=== PATIENT | female | born 1980 | race Caucasian/White ===

== ENCOUNTER → 2020-10-25 11:05 | Outpatient (BNVA) | payer OTHER, SELFPAY | PROVIDERS: Visit Provider Obstetrics & Gynecology ==

== ENCOUNTER 2020-11-06 08:57 | Outpatient (REF) | payer OTHER, SELFPAY ==
[2020-11-09 01:27] LABS: HPV mRNA E6/E7 rflx Not Detected (Not Detected)
== END 2020-11-06 08:58 | disposition home or self-care (01) ==
LOC: HO.LAB 08:57
PROVIDERS: Visit Provider Obstetrics & Gynecology
DX: Z01.419 Encounter for gynecological examination (general) (routine) without abnormal findings (principal); Z11.51 Encounter for screening for human papillomavirus (HPV)
CPT/HCPCS: 87624; 88142

== ENCOUNTER 2020-12-25 12:33 | Outpatient (REF) | payer OTHER, SELFPAY ==
--- NOTE | ~2020-12-25 | MM_ITS ---
EXAMINATION: MM SCREENING DIGITAL BREAST TOMOSYNTHESIS, BILATERAL CLINICAL INFORMATION: Screening. Asymptomatic. Benign excisional biopsy left breast 2000 by patient history. Age 40. No known family history breast cancer. The lifetime risk of breast cancer based on the Tyrer-Cuzick Model is 10%. COMPARISON: None (current study represents initial baseline exam). TECHNIQUE: Digital breast tomosynthesis is performed in both the craniocaudal and mediolateral oblique views along with computer-aided detection (CAD). Synthesized 2D images are generated from the tomosynthesis. FINDINGS: There are scattered areas of fibroglandular density (ACR BI-RADS breast composition Category b). There is benign-appearing oval circumscribed nodule mid central 6:00 right breast measuring approximately 7 x 4 mm, possibly a cyst. As this represents initial baseline exam, patient will be recalled for additional characterization with ultrasound. The remainder of the breasts are unremarkable. There is no significant mass or architectural abnormality or abnormal calcifications. The axilla and skin contours are unremarkable. MM/MM tomosynthesis screening BI IMPRESSION: 1. Right: Circumscribed oval nodule under 1 cm mid central 6:00, possibly a cyst. 2. Left: No mammographic evidence of malignancy. ASSESSMENT: BI-RADS 0: Incomplete - Need Additional Imaging Evaluation RECOMMENDATION: 1. Targeted ultrasound right breast. 2. Radiology department staff will contact the patient for additional imaging. This patient's information was entered into a reminder system with a target due date for their next mammogram.
== END 2020-12-25 12:34 | disposition home or self-care (01) ==
LOC: HO.MAMMO 12:33
PROVIDERS: Visit Provider Obstetrics & Gynecology
DX: Z12.31 Encounter for screening mammogram for malignant neoplasm of breast (principal)
CPT/HCPCS: 77063; 77067

== ENCOUNTER 2021-01-17 12:44 | Outpatient (REF) | payer OTHER, SELFPAY ==
--- NOTE | ~2021-01-17 | US_ITS ---
EXAMINATION: US DIAGNOSTIC ULTRASOUND BREAST, RIGHT CLINICAL INFORMATION: Recall from baseline screening mammography for benign-appearing oval circumscribed nodule mid central 6:00 right breast under 1 cm. No known family history breast cancer. TC score 10%. COMPARISON: Mammography 12/25/2020. TECHNIQUE: Ultrasound right breast is targeted to the lower breast 4:00 through 8:00 position. Grayscale imaging and color Doppler are performed without and with harmonics. FINDINGS: There are 3 small cysts in the mid lower right breast, the oval unilocular simple cyst 6:00 position measuring 5 x 3 mm corresponds to the finding on baseline mammography. The other 2 cysts are also benign, an 8 x 4 mm cyst with fine avascular internal septation and a 6 x 4 mm cyst with fine incomplete avascular internal septation. There is no solid mass or architectural abnormality. No duct ectasia or edema tracking in soft tissue planes. Results are discussed with the patient at time of visit. US/US breast RT limited IMPRESSION: There are several small cysts in the lower right breast, one corresponding to the finding on baseline mammography. No solid mass or architectural abnormality. ASSESSMENT: BI-RADS 2: Benign RECOMMENDATION: Routine annual mammography screening. This patient's information was entered into a reminder system with a target due date for their next mammogram.
== END 2021-01-17 12:45 | disposition home or self-care (01) ==
LOC: HO.MAMMO 12:44
PROVIDERS: Visit Provider Obstetrics & Gynecology
DX: N63.15 Unspecified lump in the right breast, overlapping quadrants (principal)
CPT/HCPCS: 76642

== ENCOUNTER 2021-11-08 06:15 | Inpatient (IN) | payer OTHER, SELFPAY ==
--- NOTE | ~2021-11-08 | XR_ITS ---
EXAMINATION: XR CHEST CLINICAL INFORMATION: Status post chest tube clamping. COMPARISON: 11/12/2021 chest radiograph. TECHNIQUE: Frontal view of the chest was obtained. FINDINGS: Support devices: Right pigtail chest tube without interval change. The lungs are clear. No pneumothorax. The heart and mediastinal structures are unremarkable. XR/XR chest 1V IMPRESSION: No acute cardiopulmonary process. No pneumothorax with right chest tube clamped.
--- NOTE | ~2021-11-08 | XR_ITS ---
EXAMINATION: XR CHEST CLINICAL INFORMATION: Chest tube placement for right-sided pneumothorax. Delayed image COMPARISON: Earlier on same day TECHNIQUE: AP portable view of the chest was obtained. FINDINGS: Since previous study a right-sided chest tube has been placed. There has been reexpansion of the right lung with no persistent pneumothorax identified. There is right base parenchymal disease present likely related to atelectasis. No mediastinal shift is appreciated as had been seen earlier. The left hemithorax appears unremarkable. Heart normal size. XR/XR chest 1V IMPRESSION: Right chest tube in place with reexpansion of the right lung with no residual pneumothorax appreciated.
--- NOTE | ~2021-11-08 | CT_ITS ---
EXAMINATION: CT CHEST WITHOUT CONTRAST CLINICAL INFORMATION: Right-sided pneumothorax COMPARISON: Chest radiograph 11/08/2021 6:31 AM TECHNIQUE: Multidetector volumetric CT imaging of the chest was done. Axial MIP volume rendering provided. Sagittal and coronal reformatted images were obtained. This CT examination was performed using dose optimization techniques as appropriate, variously including the following: *Automated exposure control *Adjustment of mA and/or kV according to patient size (this includes techniques or standardized protocols for targeted exams where dose is matched to indication/reason for exam; i.e. extremities or head) *Use of iterative reconstruction technique DLP: 191 mGy-cm FINDINGS: VALUE STREAM COACH: Moderate size right pneumothorax which appears increased when compared to the chest radiograph from 6:31 AM this morning LUNGS: Moderate sized right pneumothorax is present with partial collapse of the right middle lobe and atelectatic changes in the right lower lobe. This appears increased in size when compared to the prior chest radiograph. Incidentally noted is a 2 mm nodule right upper lobe (6:186). MEDIASTINUM: The mediastinum is normal. PLEURA: There is no pleural effusion. No pleural mass or thickening. AXILLA: No lymphadenopathy. UPPER ABDOMEN: 2 nonobstructing calculi are seen in the partially visualized left kidney. OSSEOUS STRUCTURES: Unremarkable. CT/CT chest wo con IMPRESSION: 1. Increasing size of right pneumothorax with partial collapse right middle lobe and right lower lobe atelectasis. 2. Incidental note nonobstructing left renal calculi and tiny 2 mm right upper lobe nodule which should need no further follow-up. 2017 Fleischner Society Recommendations for Lung Nodule(s): Follow-Up based on size (average of long- and short-axis diameters). Use most suspicious nodule for followup. Single Solid low risk nodule < 6 mm: No routine follow-up imaging is recommended in low risk and high risk patients. These guidelines do not apply to patients younger than 35 years, immunocompromised patients, and patients with cancer. F/u in patients with significant comorbidities as clinically warranted. For lung cancer screening, adhere to Lung-RADS guidelines. Reference: Radiology. 2017 Nov; 284(1):228-243 Fleischner guidelines were followed.
--- NOTE | ~2021-11-08 | XR_ITS ---
EXAMINATION: XR CHEST CLINICAL INFORMATION: Right-sided chest tube. Rule out pneumothorax. COMPARISON: November 11, 2021. TECHNIQUE: AP portable view of the chest was obtained. FINDINGS: Right-sided chest tube is again seen in position with no pneumothorax identified. No mediastinal shift. There is minor atelectasis seen at the right base. Heart normal size. No evidence of pulmonary edema. XR/XR chest 1V IMPRESSION: Right chest tube in place without pneumothorax. Minimal right base disease.
--- NOTE | ~2021-11-08 | CT_ITS ---
PROCEDURE: CT GUIDED INSERTION, PLEURAL CATHETER CLINICAL INFORMATION: Right pneumothorax. COMPARISON: CT of same day and 02/05/2019. TECHNIQUE: CT fluoroscopic-guided right chest tube placement. This CT examination was performed using dose optimization techniques as appropriate, variously including the following: *Automated exposure control *Adjustment of mA and/or kV according to patient size (this includes techniques or standardized protocols for targeted exams where dose is matched to indication/reason for exam; i.e. extremities or head) *Use of iterative reconstruction technique DLP: 141 mGy-cm. FINDINGS: Informed consent was obtained from the patient prior to the procedure. During this process, the procedure and potential alternatives were explained, along with the intended outcome and benefits. The risks of the procedure, as well as the risk of not doing the procedure, were discussed. The patient was given the opportunity to ask questions regarding the procedure and appeared competent to make medical decisions. A signed consent form which documents this discussion was placed in the medical record. Preliminary CT scanning demonstrates a large right pneumothorax with basilar atelectasis. There is some mild mediastinal shift to the left. There are bilateral apical blebs present as well as small lung cysts right greater than left. Bilateral nephrolithiasis is present. Using sterile technique and CT fluoroscopic guidance, a 4 [place] Yueh needle was placed into the pleural space from an anterior approach. The guidewire was coiled within the pleural space and following fascial dilatation, a 10.2 [place]an chest tube was placed. The lung was partially reexpanded with a small residual pneumothorax present. There remains some right lower lobe atelectasis. Catheter will be placed to low wall suction other than for ambulation. CT/CT chest tube placement IMPRESSION: Placement of 10.2 cm right chest tube as described.
--- NOTE | ~2021-11-08 | XR_ITS ---
EXAMINATION: PORTABLE CHEST 1 VIEW CLINICAL INFORMATION: Pneumothorax: pigtail clamped x 2 hrs . COMPARISON: Study earlier today. TECHNIQUE: Portable frontal view of the chest was obtained. FINDINGS: Previous noted chest tube is no longer seen. I do not appreciate any significant pneumothorax. Mild tubular markings seen at the lung bases possibly due to atelectasis. No significant effusion or edema. Cardiac and mediastinal silhouettes within normal limits for size. No acute bony abnormality. XR/XR chest 1V IMPRESSION: No significant pneumothorax seen. Right chest tube is no longer visualized.
--- NOTE | ~2021-11-08 | XR_ITS ---
EXAMINATION: XR CHEST CLINICAL INFORMATION: Reassess pneumothorax. COMPARISON: Chest radiographs dated 11/09/2021 and 11/10/2021. TECHNIQUE: Frontal view of the chest was obtained. FINDINGS: Support devices: Right-sided pigtail catheter without interval change. Coiled wires overlie the medial right lung base without interval change. No significant abnormality is noted involving the heart, lungs, mediastinum, bony thorax or soft tissues. XR/XR chest 1V IMPRESSION: No acute cardiopulmonary process. No right pneumothorax with chest tube in place.
--- NOTE | ~2021-11-08 | XR_ITS ---
EXAMINATION: XR CHEST CLINICAL INFORMATION: Chest pain COMPARISON: 02/09/2019 TECHNIQUE: Frontal view of the chest was obtained. FINDINGS: Cardiac leads overlie the chest. The lungs are well expanded. There is no focal consolidation, edema, or effusion. There is a small right-sided pneumothorax. The cardiomediastinal silhouette is within normal limits. No acute osseous abnormality. XR/XR chest 1V IMPRESSION: Small right pneumothorax. This critical result was discussed with Linda Cotto MD by telephone at 11/08/2021 6:49 AM and it was ascertained that the content and urgency of the report was understood at the time of direct communication.
--- NOTE | ~2021-11-08 | XR_ITS ---
EXAMINATION: XR CHEST CLINICAL INFORMATION: Pneumothorax evaluation COMPARISON: 11/08/2021. TECHNIQUE: Frontal view of the chest was obtained. FINDINGS: There is been reexpansion of the right lung. The right-sided chest tube is in stable position. Lungs are clear. Heart and pulmonary vessels are normal. XR/XR chest 1V IMPRESSION: Stable findings. No pneumothorax at this time.
--- NOTE | ~2021-11-08 | XR_ITS ---
EXAMINATION: XR CHEST CLINICAL INFORMATION: Follow-up chest x-ray, assessing for pneumothorax. COMPARISON: 11/09/2021 and 11/08/2021 chest radiographs, chest CT dated 11/08/2021. TECHNIQUE: Frontal view of the chest was obtained. FINDINGS: Support devices: Right-sided pigtail chest tube overlying of the midlung medially. Correlate wires overlie the right lung base. The lungs are clear. No pneumothorax. The heart and mediastinal structures are unremarkable. XR/XR chest 1V IMPRESSION: No acute cardiopulmonary process. No overt pneumothorax with chest tube in place.
[2021-11-08 06:17] VITALS: BP 142/90; PULSE 82; RESP 16; O2SAT 98
--- NOTE | 2021-11-08 06:17 | ECG_ITS ---
Test Reason : CHEST PAIN Blood Pressure : / mmHG Vent. Rate : 075 BPM Atrial Rate : 075 BPM P-R Int : 122 ms QRS Dur : 082 ms QT Int : 384 ms P-R-T Axes : 082 082 067 degrees QTc Int : 428 ms Normal sinus rhythm Cannot rule out Anterior infarct , age undetermined Abnormal ECG When compared with ECG of 05-FEB-2019 12:47, changes noted Referred By: Generic ED Physician Electronically Signed By:GIO NOLAN
[2021-11-08 06:26] LABS: MANUAL DIFF FLAG NO
[2021-11-08 06:30] LABS: Basophils Percent Auto 0.4 % (0-2); Eosinophils Absolute Auto 0.3 X10*3/uL (0.0-0.4); Eosinophils Percent Auto 4.3 % (0-4); Hematocrit 42.3 % (37.0-47.0); Hemoglobin 14.3 g/dl (12.0-16.0); Imm Gran Abs Auto 0.01 X10*3/uL (0.00-0.03); Imm Gran Pct Auto 0.1 % (0.0-0.4); Lymphocytes Absolute Auto 2.7 X10*3/uL (1.2-4.9); Lymphocytes Percent Auto 36.6 % (20-40); Mean Corpuscular HGB Conc 33.8 g/dl (31.0-35.0); Mean Corpuscular Hemoglobin 33.1 pg (27.0-33.0); Mean Corpuscular Volume 97.9 fL (80.0-98.0); Mean Platelet Volume 10.7 fL (9.4-12.3); Monocytes Absolute Auto 0.9 X10*3/uL (0.1-1.2); Monocytes Percent Auto 11.9 % (2-11); Neutrophils Absolute Auto 3.4 x10*3/uL (2.0-8.3); Neutrophils Percent Auto 46.7 % (45-73); Platelet Count 288 X10*3/uL (160-400); Red Blood Count 4.32 X10*6/uL (4.20-5.50); Red Cell Distribution Width 13.2 % (11.0-16.0); White Blood Count 7.4 X10*3/uL (4.8-10.8)
--- NOTE | 2021-11-08 06:36 | ED.CHESTPAIN ---
HPI - Chest Pain General Chief Complaint: Chest Pain Stated Complaint: Chest pain Time Seen by Provider: 11/08/21 06:36 Source: patient Mode of arrival: ambulatory Limitations: no limitations History of Present Illness HPI narrative: 41 yo female hx of smoker, hx of spontaneous PTX in 2019 that required pigtail catheter post removal it reaccumulated and patient had to have it replaced, she reports that today at 545am she developed R sided pain and it feels similar to prior collapsed lung. Denies trauma. Denies recent illness MD complaint: chest pain Pertinent past history: other (spontaneous pneumothorax) Onset (ago): hour(s) (0545 today ) Timing of current episode: constant Prior episodes: Yes Onset: during rest Pain location: right chest Pain radiation: none Severity: severe Quality: sharp Relieving factors: nothing Exacerbating factors: inspiration Context: other (feels like her prior PTX) Associated symptoms: dyspnea Treatment prior to arrival: none Related Data Home Medications Medication Instructions Recorded Confirmed No Known Home Meds 11/08/21 11/08/21 Allergies Allergy/AdvReac Type Severity Reaction Status Date / Time bee pollen [BEE STINGS] Allergy Severe ANAPHYLAXIS Verified 11/08/21 06:20 bees Allergy Severe anaphylaxis Uncoded 11/08/21 06:20 Bee sting Allergy Unknown Unknown Uncoded 11/08/21 06:20 Review of Systems Review of Systems: Constitutional : No Weight loss, No Fever, No Chills ENT/Mouth : No sore throat, No Rhinorrhea Eyes: No Eye Pain, No Swelling Cardiovascular : pos Chest Pain, pos SOB, no Dyspnea on Exertion, No Orthopnea, No Edema, No Palpitations Respiratory : No Cough, No Sputum Gastrointestinal : no Nausea, No Vomiting, No Diarrhea, No abdominal Pain, No Hematochezia, No Melena Genitourinary : No Dysuria, No Urinary Frequency Musculoskeletal : No joint pain, No Myalgias, No Joint Swelling Skin : No Skin Lesions, No rash Neuro : No Weakness, No Numbness, No Dizziness, No Headache Psych : No Anxiety/Panic, No Depression Heme/Lymph: No Bruising, No Lymphadenopathy Endocrine : No Polyuria, No Polydipsia All other systems reviewed and are negative PMFSH Past Medical History Attestation statement: The following information was validated with the patient. Medical History Abnormal Pap smear of cervix Kidney problem Renal calculi Spontaneous pneumothorax Surgical History H/O cystoscopy Social History Social History Alcohol intake: current Patient Tobacco Use Status: Current everyday Tobacco user Advance Directives: No Physical Exam Vital Signs: Vital Signs: Last Vital Signs Pulse 82 11/08/21 06:17 Resp 16 11/08/21 06:17 BP 142/90 H 11/08/21 06:17 Pulse Ox 98 11/08/21 06:17 O2 Del Method 11/08/21 06:17 BMI result Body Mass Index 34.9 Course Course Course Narrative: saw CXR at bedside placed on NRB immediately, small PTX noted less than 20% seems apical message sent to thoracics given size unsure if we should watch and repeat xray or place pleural cath given her history - notified we do not have thoracics coverage at this time CT chest PTX larger call to IR IR to place tube Dr. Bales will follow along and help hospitalists with chest tube since thoracic not available this week MDM - Chest Pain MDM Narrative Medical decision making narrative: 41 yo female hx of spontaneous PTX in 2019 with recurrent post discharge comes in with R sided chest pain since this AM 545 - at this time no ACS risk factors seems atypical for ACS, EKG, troponin, stat CXR ordered she is slightly diminished and splinting on R side. Has no risk factors for PE and has no signs of DVT/hypoxia doubt VTE. IV morphine for pain. Dispo per results and findings. Lab Data Result diagrams: 11/08/21 06:22 11/08/21 06:22 Labs: Lab Results 11/08/21 11/08/21 11/08/21 Range/Units 06:22 06: 06:22 WBC 7.4 (4.8-10.8) X10*3/uL RBC 4.32 (4.20-5.50) X10*6/uL Hgb 14.3 (12.0-16.0) g/dl Hct 42.3 (37.0-47.0) % MCV 97.9 (80.0-98.0) fL MCH 33.1 H (27.0-33.0) pg MCHC 33.8 (31.0-35.0) g/dl RDW 13.2 (11.0-16.0) % Plt Count 288 (160-400) X10*3/uL MPV 10.7 (9.4-12.3) fL Immature Gran % (Auto) 0.1 (0.0-0.4) % Neut % (Auto) 46.7 (45-73) % Lymph % (Auto) 36.6 (20-40) % [place] % (Auto) 11.9 H (2-11) % Eos % (Auto) 4.3 H (0-4) % Baso % (Auto) 0.4 (0-2) % Lymph # (Auto) 2.7 (1.2-4.9) X10*3/uL [place] # (Auto) 0.9 (0.1-1.2) X10*3/uL Eos # (Auto) 0.3 (0.0-0.4) X10*3/uL Baso # (Auto) 0.0 (0.0-0.2) X10*3/uL Abs Immat Gran (auto) 0.01 (0.00-0.03) X10*3/uL Absolute Neuts (auto) 3.4 (2.0-8.3) x10*3/uL Absolute Nucleated RBC 0.000 (0.0-0.012) X10*3/uL Nucleated RBC % (auto) 0.0 (0.0-0.2) /100WBC PT (10.0-13.1) SEC INR (0.9-1.1) Sodium 139 (135-145) mmol/L Potassium 4.2 (3.3-5.1) mmol/L Chloride 108 (96-108) mmol/L Carbon Dioxide 25 (22-29) mmol/L Anion Gap 10 L (12-20) BUN 13 (9-16) mg/dL Creatinine 0.78 (0.5-1.4) mg/dL Estim Creat Clear Calc 81.5 Estimated GFR > 60 Random Glucose 89 (60-115) mg/dL Calcium 8.7 (8.4-10.2) mg/dL Troponin I High Sens < 3.5 (<3.5-17.0) ng/L COVID-19 ([facility]) (Negative) COVID-19 Clin Com 11/08/21 11/08/21 Range/Units 07:02 07:02 WBC (4.8-10.8) X10*3/uL RBC (4.20-5.50) X10*6/uL Hgb (12.0-16.0) g/dl Hct (37.0-47.0) % MCV (80.0-98.0) fL MCH (27.0-33.0) pg MCHC (31.0-35.0) g/dl RDW (11.0-16.0) % Plt Count (160-400) X10*3/uL MPV (9.4-12.3) fL Immature Gran % (Auto) (0.0-0.4) % Neut % (Auto) (45-73) % Lymph % (Auto) (20-40) % [place] % (Auto) (2-11) % Eos % (Auto) (0-4) % Baso % (Auto) (0-2) % Lymph # (Auto) (1.2-4.9) X10*3/uL [place] # (Auto) (0.1-1.2) X10*3/uL Eos # (Auto) (0.0-0.4) X10*3/uL Baso # (Auto) (0.0-0.2) X10*3/uL Abs Immat Gran (auto) (0.00-0.03) X10*3/uL Absolute Neuts (auto) (2.0-8.3) x10*3/uL Absolute Nucleated RBC (0.0-0.012) X10*3/uL Nucleated RBC % (auto) (0.0-0.2) /100WBC PT 10.9 (10.0-13.1) SEC INR 1.0 (0.9-1.1) Sodium (135-145) mmol/L Potassium (3.3-5.1) mmol/L Chloride (96-108) mmol/L Carbon Dioxide (22-29) mmol/L Anion Gap (12-20) BUN (9-16) mg/dL Creatinine (0.5-1.4) mg/dL Estim Creat Clear Calc Estimated GFR Random Glucose (60-115) mg/dL Calcium (8.4-10.2) mg/dL Troponin I High Sens (<3.5-17.0) ng/L COVID-19 ([facility]) Negative (Negative) COVID-19 Clin Com See Note ECG Data ECG #1: Attestation: I personally reviewed and interpreted this ECG as follows: ECG interpretation date: 11/08/21 ECG interpretation time: 06:36 Interpretation: Rate: 75 Rhythm: NSR [place]: normal Normal P waves. Normal LILLY. Normal QRS complex. ST T wave : normal no MELONIE qTC: normal prior studies: no acute ischemia The study has been interpreted contemporaneously by me. . Critical Care Time Critical Care Time Critical Care Time: Yes Total Critical Care Time: 45 Attestation: review of records, medical consult, stat consult for chest tube placement I attest to this time spent taking care of the patient Discharge Plan Discharge Clinical Impression: Spontaneous pneumothorax Patient Disposition: Admitted As Inpatient
[2021-11-08 06:48] LABS: Anion Gap 10 (12-20); Blood Urea Nitrogen 13 mg/dL (9-16); Calcium 8.7 mg/dL (8.4-10.2); Carbon Dioxide 25 mmol/L (22-29); Chloride 108 mmol/L (96-108); Creatinine Clr Calc Pharmacy 81.5; Estimated Glomerular Filt Rate > 60; Glucose Random 89 mg/dL (60-115); Potassium 4.2 mmol/L (3.3-5.1); Sodium 139 mmol/L (135-145)
[2021-11-08 06:54] LABS: Troponin-I High Sensitivity < 3.5 ng/L (<3.5-17.0)
[2021-11-08] MEDS: 0.9 % Sodium Chloride 1,000 ML 999 ML IV (06:58)
[2021-11-08] MEDS: Morphine Sulfate 4 MG/ML CARTRIDGE IVPUSH (07:12)
[2021-11-08] MEDS: ondansetron HCL 4 MG/2 ML VIAL IVPUSH (07:12)
[2021-11-08 07:15] LABS: Prothrombin Time 10.9 SEC (10.0-13.1)
[2021-11-08 07:39] LABS: COVID-19 Test Negative (Negative)
[2021-11-08 08:50] VITALS: BMI 34.9
--- NOTE | 2021-11-08 09:09 | PC.NURSE ---
doppler obtained/given to
--- NOTE | 2021-11-08 10:36 | PHA.MEDREC ---
Pharmacy Consult ? Medication Reconciliation Pharmacy has completed the medication reconciliation. Pt states she has no home medications.
[2021-11-08] MEDS: HYDROmorphone HCl 0.5 MG/0.5 ML SYRINGE IVPUSH (10:40)
[2021-11-08] MEDS: Ketorolac Tromethamine 30 MG/ML VIAL IVPUSH (10:40)
--- NOTE | 2021-11-08 11:36 | P.HPHOSP_ITS ---
History of Present Illness Date of Service: 11/08/21 Chief Complaint: right sided chest pain This is a 41 yo F with a PMH of Spontaneous PTX in 2019, nephrolithiasis who presents to the hospital with complaints of sudden onset right sided chest pain which woke her up from sleep around 4-5AM on the day of admission. The patients reports pleuritic type R chest pain which was similar to her prior episode. She reports being in her usual state of health otherwise. She denies cough. She does endorse 1PPD tobacco smoking. In the ED imaging studies showed pneumothorax and she has undergone placement of a pig tail cath. She will not be admitted for further treatment. Review of Systems Review of Systems: negative except HPI [facility] Medical History Abnormal Pap smear of cervix Kidney problem Renal calculi Spontaneous pneumothorax Surgical History H/O cystoscopy Social History Alcohol intake: current Patient Tobacco Use Status: Current everyday Tobacco user Advance Directives: No Meds Allergies Allergy/AdvReac Type Severity Reaction Status Date / Time bee pollen [BEE STINGS] Allergy Severe ANAPHYLAXIS Verified 11/08/21 06:20 bees Allergy Severe anaphylaxis Uncoded 11/08/21 06:20 Bee sting Allergy Unknown Unknown Uncoded 11/08/21 06:20 Active Medications: Current Medications Acetaminophen (Acetaminophen 325 Mg Tablet) 650 mg PO Q6H PRN PRN Reason: Pain, Mild (Pain Scale 1-3) Enoxaparin Sodium (Enoxaparin Sodium 40 Mg/0.4 Ml Syringe) 40 mg SUBCUT Q24H NILDA Morphine Sulfate (Morphine Sulfate 2 Mg/Ml Cartridge) 2 mg IVPUSH Q3H PRN; Protocol PRN Reason: Pain, Severe (Pain Scale 7-10) Ondansetron HCl (Ondansetron Hcl 4 Mg/2 Ml Vial) 4 mg IVPUSH Q8H PRN PRN Reason: Nausea and Vomiting Oxycodone HCl (Oxycodone Hcl Immed Release 5 Mg Tablet) 5 mg PO Q6H PRN PRN Reason: Pain, Moderate (Pain Scale 4-6 Pharmacy Consult (Consult Rx Perform Med Rec) 1 each MISCELLANE ONCE PRN PRN Reason: Consult order Sodium Chloride (0.9 % Sodium Chloride Flush 3 Ml Syringe) 3 ml IVFLUSH QSHIFT [facility] Home Medications Medication Instructions Recorded Confirmed Last Taken Type No Known Home Meds 11/08/21 11/08/21 Unknown History Physical Exam Vital Signs and Narrative: Vital Signs: Last Vital Signs Pulse 82 11/08/21 06:17 Resp 16 11/08/21 06:17 BP 142/90 H 11/08/21 06:17 Pulse Ox 98 11/08/21 06:17 O2 Del Method 11/08/21 06:17 BMI result Body Mass Index 34.9 Const: Other: Constitutional - Awake and Alert, No apparent distress Eyes - PERRLA, EOMI Cardiovascular - S1S2, RRR, No edema Respiratory - air entry equal biaterally with the exception of the right base where it is dim Gastrointestinal - NT / ND; +BS; No rebound or guarding - No CVA tenderness Extremities - no calf tenderness bilaterally, no swelling Musculoskeletal - Normal inspection, normal ROM Skin - Warm/Dry Neurological - Alert & oriented x3, No focal deficit Psychological - Appropriate affect Results Labs CBC and Chem 7: 11/08/21 06:22 11/08/21 06:22 Labs: Laboratory Results - last 24 hr 11/08/21 11/08/21 11/08/21 06:22 06:22 06:22 MCV 97.9 MCH 33.1 H MCHC 33.8 RDW 13.2 Plt Count 288 MPV 10.7 Immature Gran % (Auto) 0.1 Neut % (Auto) 46.7 Lymph % (Auto) 36.6 [place] % (Auto) 11.9 H Eos % (Auto) 4.3 H Baso % (Auto) 0.4 Lymph # (Auto) 2.7 [place] # (Auto) 0.9 Eos # (Auto) 0.3 Baso # (Auto) 0.0 Abs Immat Gran (auto) 0.01 Absolute Neuts (auto) 3.4 Absolute Nucleated RBC 0.000 Nucleated RBC % (auto) 0.0 PT INR Anion Gap 10 L Estim Creat Clear Calc 81.5 Estimated GFR > 60 Random Glucose 89 Calcium 8.7 Troponin I High Sens < 3.5 COVID-19 ([facility]) COVID-19 Clin Com 11/08/21 11/08/21 07:02 07:02 MCV MCH MCHC RDW Plt Count MPV Immature Gran % (Auto) Neut % (Auto) Lymph % (Auto) [place] % (Auto) Eos % (Auto) Baso % (Auto) Lymph # (Auto) [place] # (Auto) Eos # (Auto) Baso # (Auto) Abs Immat Gran (auto) Absolute Neuts (auto) Absolute Nucleated RBC Nucleated RBC % (auto) PT 10.9 INR 1.0 Anion Gap Estim Creat Clear Calc Estimated GFR Random Glucose Calcium Troponin I High Sens COVID-19 ([facility]ON) Negative COVID-19 Clin Com See Note Imaging Radiologist's Impressions: Impressions Chest X-Ray 11/08/21 06:37 IMPRESSION: Small right pneumothorax. This critical result was discussed with Linda Cotto MD by telephone at 11/08/2021 6:49 AM and it was ascertained that the content and urgency of the report was understood at the time of direct communication. Chest CT 11/08/21 08:11 IMPRESSION: 1. Increasing size of right pneumothorax with partial collapse right middle lobe and right lower lobe atelectasis. 2. Incidental note nonobstructing left renal calculi and tiny 2 mm right upper lobe nodule which should need no further follow-up. 2017 Fleischner Society Recommendations for Lung Nodule(s): Follow-Up based on size (average of long- and short-axis diameters). Use most suspicious nodule for followup. Single Solid low risk nodule < 6 mm: No routine follow-up imaging is recommended in low risk and high risk patients. These guidelines do not apply to patients younger than 35 years, immunocompromised patients, and patients with cancer. F/u in patients with significant comorbidities as clinically warranted. For lung cancer screening, adhere to Lung-RADS guidelines. Reference: Radiology. 2017 Nov; 284(1):228-243 Fleischner guidelines were followed. Assessment and Plan (1) Spontaneous pneumothorax: Status: Acute Plan THis is a 41 yo, relatively healthy, female with a PMH of prior spontaneous PTX who presents with sudden onset of R sided chest pain, pleuritic in nature. She is diagnosed with a pneumothorax. She will now be admitted. 1. Spontaneous Pneumothorax pigtail cath placed by IR -- reports indicate small pneumo left, repeat cxr for 4p ordered Dr. Bales from the ICU following and will be helping manage the patient. monitor on tele and continuous pulse ox currently -15cm suction 2. Tobacco use nicotine patch if she needs cessation encouraged. Full Code DVT pptx -- lovenox In light of the patients pneumothorax, I anticipate a medically necessary inpatient hospitalization which is likely to span at least 2 midnights for treatment and monitoring response. This cannot be completed in a less acute setting. Quality Stroke Does the patient have a stroke diagnosis?: No VTE Prior VTE?: No VTE Risk Level:: Medical - moderate - high VTE Device Contraindication: N/A - Device Ordered VTE Drug Contraindication: Treatment Not Indicated
[2021-11-08 15:44] VITALS: BP 138/87; PULSE 75; RESP 22; TEMP 36.4; O2SAT 98
--- NOTE | 2021-11-08 16:31 | MHC.CM.PN ---
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
[2021-11-08] MEDS: Enoxaparin Sodium 40 MG/0.4 ML SYRINGE SUBCUT (17:06)
[2021-11-08] MEDS: oxyCODONE HCl Immed Release 5 MG TABLET PO ×2 (17:11→22:25)
[2021-11-08] MEDS: 0.9 % Sodium Chloride Flush 3 ML SYRINGE IVFLUSH ×2 (17:25→22:25)
[2021-11-08 18:49] VITALS: BP 133/80; PULSE 72; RESP 11; O2SAT 98
--- NOTE | 2021-11-08 19:44 | PC.NURSE ---
called [facility] x [phone] to give report and spoke to Orin Elizabeth pt to go to bed #[id number]
[2021-11-08 20:00] VITALS: BP 108/68; PULSE 62; RESP 16; TEMP 36.9; O2SAT 96
[2021-11-08 23:56] VITALS: BP 106/60; PULSE 55; RESP 18; TEMP 36.9; O2SAT 96
[2021-11-09 03:11] VITALS: RESP 18
[2021-11-09] MEDS: Morphine Sulfate 2 MG/ML CARTRIDGE IVPUSH ×3 (03:11→22:23)
[2021-11-09 03:25] VITALS: BP 130/67; PULSE 60; RESP 18; TEMP 36.7; O2SAT 97
--- NOTE | 2021-11-09 05:34 | ECG_ITS ---
Test Reason : elevated t waves Blood Pressure : / mmHG Vent. Rate : 055 BPM Atrial Rate : 055 BPM P-R Int : 130 ms QRS Dur : 084 ms QT Int : 444 ms P-R-T Axes : 081 078 071 degrees QTc Int : 424 ms Sinus bradycardia Otherwise normal ECG When compared with ECG of 08-NOV-2021 06:14, No significant change was found Referred By: Ben Eaton Electronically Signed By:GIO NOLAN
[2021-11-09 06:17] LABS: Hematocrit 37.4 % (37.0-47.0); Hemoglobin 12.5 g/dl (12.0-16.0); Mean Corpuscular HGB Conc 33.4 g/dl (31.0-35.0); Mean Corpuscular Hemoglobin 32.9 pg (27.0-33.0); Mean Corpuscular Volume 98.4 fL (80.0-98.0); Mean Platelet Volume 11.8 fL (9.4-12.3); Platelet Count 223 X10*3/uL (160-400); Red Cell Distribution Width 13.2 % (11.0-16.0); White Blood Count 8.4 X10*3/uL (4.8-10.8)
[2021-11-09 07:00] LABS: Anion Gap 8 (12-20); Blood Urea Nitrogen 13 mg/dL (9-16); Calcium 8.2 mg/dL (8.4-10.2); Carbon Dioxide 24 mmol/L (22-29); Chloride 108 mmol/L (96-108); Creatinine Clr Calc Pharmacy 112.6; Estimated Glomerular Filt Rate > 60; Glucose Random 93 mg/dL (60-115); Potassium 4.4 mmol/L (3.3-5.1); Sodium 136 mmol/L (135-145)
[2021-11-09 08:00] VITALS: BP 127/56; PULSE 60; RESP 19; TEMP 36.4; O2SAT 94
[2021-11-09] MEDS: 0.9 % Sodium Chloride Flush 3 ML SYRINGE IVFLUSH ×3 (10:03→20:42)
[2021-11-09 12:00] VITALS: BP 124/67; PULSE 56; RESP 19; TEMP 36.6; O2SAT 97
--- NOTE | 2021-11-09 12:39 | P.PNIM_ITS ---
Subjective Subjective Date of Service: 11/09/21 Interval History: No acute issues overnight. Tolerant of chest to Review of Systems Denies chest pain Denies shortness of breath Denies nausea vomiting diarrhea Denies fever chills Physical Exam Vital Signs: Vital Signs: Last Vital Signs Temp 97.6 F 11/09/21 08:00 Pulse 60 11/09/21 08:00 Resp 19 11/09/21 08:00 BP 127/56 L 11/09/21 08:00 Pulse Ox 94 11/09/21 08:00 O2 Del Method 11/09/21 08:00 BMI result Body Mass Index 34.9 Const: Other: No acute distress Resp: Other: Good aeration with scattered expiratory wheezes throughout and coarse rhonchi that clear with a cough Cardio: Other: No S4; positive S1-S2; no S3 murmurs rubs or gallops GI: Other: Soft nontender nondistended normoactive bowel sounds Neuro: Other: Cranial nerves 2-12 grossly intact. Motor is 5/5 in all extremities. Sensation intact. Cognition appropriate Extrem: Other: No edema bilaterally Objective Data Active Medications Acetaminophen (Acetaminophen 325 Mg Tablet) 650 mg PO Q6H PRN PRN Reason: Pain, Mild (Pain Scale 1-3) Enoxaparin Sodium (Enoxaparin Sodium 40 Mg/0.4 Ml Syringe) 40 mg SUBCUT Q24H [facility] Last Admin: 11/08/21 17:06 Dose: 40 mg Documented By: HALEY Morphine Sulfate (Morphine Sulfate 2 Mg/Ml Cartridge) 2 mg IVPUSH Q3H PRN; Prot ocol PRN Reason: Pain, Severe (Pain Scale 7-10) Last Admin: 11/09/21 03:11 Dose: 2 mg Documented By: AMOL Ondansetron HCl (Ondansetron Hcl 4 Mg/2 Ml Vial) 4 mg IVPUSH Q8H PRN PRN Reason: Nausea and Vomiting Oxycodone HCl (Oxycodone Hcl Immed Release 5 Mg Tablet) 5 mg PO Q6H PRN PRN Reason: Pain, Moderate (Pain Scale 4-6 Last Admin: 11/08/21 22:25 Dose: 5 mg Documented By: AMOL Pharmacy Consult (Consult Rx Perform Med Rec) 1 each MISCELLANE ONCE PRN PRN Reason: Consult order Sodium Chloride (0.9 % Sodium Chloride Flush 3 Ml Syringe) 3 ml IVFLUSH QSHIFT [facility] Last Admin: 11/09/21 10:03 Dose: 3 ml Documented By: LU Labs CBC & Chem 7: 11/09/21 05:41 11/09/21 05:41 Labs: Laboratory Results - last 24 hr 11/09/21 11/09/21 05:41 05:41 MCV 98.4 H MCH 32.9 MCHC 33.4 RDW 13.2 Plt Count 223 MPV 11.8 Absolute Nucleated RBC 0.000 Nucleated RBC % (auto) 0.0 Anion Gap 8 L Estim Creat Clear Calc 112.6 Estimated GFR > 60 Random Glucose 93 Calcium 8.2 L Assessment and Plan (1) Spontaneous pneumothorax: Status: Acute Plan THis is a 41 yo, relatively healthy, female with a PMH of prior spontaneous PTX who presents with sudden onset of R sided chest pain, pleuritic in nature. She is diagnosed with a pneumothorax. She will now be admitted. 1. Spontaneous Pneumothorax -chest x-ray this a.m. with complete resolution of pneumothorax -pigtail to -20; continues to drain serous fluid -consider removal when drainage is less than 100 cc/24hrs 2. Tobacco use nicotine patch if she needs cessation encouraged. Full Code DVT pptx -- lovenox Requires ongoing hospitalization for closed chest drainage secondary pneumothorax Quality Stroke Does the patient have a stroke diagnosis?: No VTE Prior VTE?: No VTE Risk Level:: Medical - moderate - high VTE Device Contraindication: N/A - Device Ordered VTE Drug Contraindication: Treatment Not Indicated
[2021-11-09] MEDS: Enoxaparin Sodium 40 MG/0.4 ML SYRINGE SUBCUT (14:45)
[2021-11-09 15:23] VITALS: BP 123/73; PULSE 63; RESP 14; TEMP 36.5; O2SAT 97
[2021-11-09 23:34] VITALS: BP 104/51; PULSE 58; RESP 16; O2SAT 95
[2021-11-10 04:00] VITALS: BP 106/50; PULSE 55; RESP 16; O2SAT 93
[2021-11-10 07:41] VITALS: BP 110/64; PULSE 62; RESP 18; TEMP 36.9; O2SAT 92
[2021-11-10] MEDS: 0.9 % Sodium Chloride Flush 3 ML SYRINGE IVFLUSH ×3 (09:32→22:52)
[2021-11-10 11:32] VITALS: BP 120/59; PULSE 60; RESP 18; TEMP 36.5; O2SAT 97
--- NOTE | 2021-11-10 13:24 | HO.PM.IMPN ---
Subjective Subjective Date of Service: 11/10/21 Interval History: No acute issues overnight. Tolerant of chest tube Review of Systems Denies chest pain Denies shortness of breath Denies nausea vomiting diarrhea Denies fever chills Physical Exam Vital Signs: Vital Signs: Last Vital Signs Temp 97.7 F 11/10/21 11:32 Pulse 60 11/10/21 11:32 Resp 18 11/10/21 11:32 BP 120/59 L 11/10/21 11:32 Pulse Ox 97 11/10/21 11:32 O2 Del Method 11/10/21 11:32 BMI result Body Mass Index 34.9 Const: Other: No acute distress Resp: Other: Good aeration with scattered expiratory wheezes throughout and coarse rhonchi that clear with a cough Cardio: Other: No S4; positive S1-S2; no S3 murmurs rubs or gallops GI: Other: Soft nontender nondistended normoactive bowel sounds Neuro: Other: Cranial nerves 2-12 grossly intact. Motor is 5/5 in all extremities. Sensation intact. Cognition appropriate Extrem: Other: No edema bilaterally Objective Data Active Medications Acetaminophen (Acetaminophen 325 Mg Tablet) 650 mg PO Q6H PRN PRN Reason: Pain, Mild (Pain Scale 1-3) Enoxaparin Sodium (Enoxaparin Sodium 40 Mg/0.4 Ml Syringe) 40 mg SUBCUT Q24H COUNTS INCLUDE 234 BEDS AT THE [facility] Last Admin: 11/09/21 14:45 Dose: 40 mg Documented By: LU Morphine Sulfate (Morphine Sulfate 2 Mg/Ml Cartridge) 2 mg IVPUSH Q3H PRN; Protocol PRN Reason: Pain, Severe (Pain Scale 7-10) Last Admin: 11/09/21 22:23 Dose: 2 mg Documented By: ADARSH Ondansetron HCl (Ondansetron Hcl 4 Mg/2 Ml Vial) 4 mg IVPUSH Q8H PRN PRN Reason: Nausea and Vomiting Oxycodone HCl (Oxycodone Hcl Immed Release 5 Mg Tablet) 5 mg PO Q6H PRN PRN Reason: Pain, Moderate (Pain Scale 4-6 Last Admin: 11/08/21 22:25 Dose: 5 mg Documented By: AMOL Pharmacy Consult (Consult Rx Perform Med Rec) 1 each MISCELLANE ONCE PRN PRN Reason: Consult order Sodium Chloride (0.9 % Sodium Chloride Flush 3 Ml Syringe) 3 ml IVFLUSH QSHIFT [facility] Last Admin: 11/10/21 09:32 Dose: 3 ml Documented By: GOPAL Labs CBC & Chem 7: 11/09/21 05:41 11/09/21 05:41 Microbiology Microbiology Results: Microbiology 11/08/21 12:19 Blood Culture - Preliminary Blood - Venous No growth after 24 hours. 11/08/21 12:19 Blood Culture - Preliminary Blood - Venous No growth after 24 hours. Assessment and Plan (1) Spontaneous pneumothorax: Status: Acute Plan THis is a 41 yo, relatively healthy, female with a PMH of prior spontaneous PTX who presents with sudden onset of R sided chest pain, pleuritic in nature. She is diagnosed with a pneumothorax. She will now be admitted. 1. Spontaneous Pneumothorax -chest x-ray this a.m. with complete resolution of pneumothorax(x2) -pigtail to -20; continues to drain serous fluid -consider removal when drainage is less than 100 cc/24hrs 2. Tobacco use nicotine patch if she needs cessation encouraged. Full Code DVT pptx -- lovenox Requires ongoing hospitalization for closed chest drainage secondary pneumothorax Quality Stroke Does the patient have a stroke diagnosis?: No VTE Prior VTE?: No VTE Risk Level:: Medical - moderate - high VTE Device Contraindication: N/A - Device Ordered VTE Drug Contraindication: Treatment Not Indicated
[2021-11-10 16:00] VITALS: BP 133/84; PULSE 72; RESP 17; TEMP 36.2; O2SAT 98
[2021-11-10 20:00] VITALS: BP 110/62; PULSE 76; RESP 18; TEMP 36.6; O2SAT 96
[2021-11-10 22:52] VITALS: RESP 18
[2021-11-10] MEDS: Morphine Sulfate 2 MG/ML CARTRIDGE IVPUSH (22:52)
[2021-11-11] VITALS (7 sets, daily range): BP systolic 101–128; BP diastolic 63–85; PULSE 55–80; RESP 18–20; TEMP 36.4–36.9; O2SAT 92–99
[2021-11-11] MEDS: 0.9 % Sodium Chloride Flush 3 ML SYRINGE IVFLUSH ×3 (09:07→21:14)
--- NOTE | 2021-11-11 14:36 | HO.PM.IMPN ---
Subjective Subjective Date of Service: 11/11/21 Interval History: No acute issues overnight. Tolerant of chest tube Review of Systems Denies chest pain Denies shortness of breath Denies nausea vomiting diarrhea Denies fever chills Physical Exam Vital Signs: Vital Signs: Last Vital Signs Temp 98 F 11/11/21 12:00 Pulse 63 11/11/21 12:00 Resp 20 11/11/21 12:00 BP 112/66 11/11/21 12:00 Pulse Ox 94 11/11/21 12:00 O2 Del Method 11/11/21 12:00 BMI result Body Mass Index 34.9 Const: Other: No acute distress Resp: Other: Good aeration with scattered expiratory wheezes throughout and coarse rhonchi that clear with a cough Cardio: Other: No S4; positive S1-S2; no S3 murmurs rubs or gallops GI: Other: Soft nontender nondistended normoactive bowel sounds Neuro: Other: Cranial nerves 2-12 grossly intact. Motor is 5/5 in all extremities. Sensation intact. Cognition appropriate Extrem: Other: No edema bilaterally Objective Data Active Medications Acetaminophen (Acetaminophen 325 Mg Tablet) 650 mg PO Q6H PRN PRN Reason: Pain, Mild (Pain Scale 1-3) Enoxaparin Sodium (Enoxaparin Sodium 40 Mg/0.4 Ml Syringe) 40 mg SUBCUT Q24H [facility] Last Admin: 11/10/21 15:31 Dose: Not Given Documented By: GOPAL Non-Admin Reason: Patient Refused Morphine Sulfate (Morphine Sulfate 2 Mg/Ml Cartridge) 2 mg IVPUSH Q3H PRN; Protocol PRN Reason: Pain, Severe (Pain Scale 7-10) Last Admin: 11/10/21 22:52 Dose: 2 mg Documented By: BRISSA Ondansetron HCl (Ondansetron Hcl 4 Mg/2 Ml Vial) 4 mg IVPUSH Q8H PRN PRN Reason: Nausea and Vomiting Oxycodone HCl (Oxycodone Hcl Immed Release 5 Mg Tablet) 5 mg PO Q6H PRN PRN Reason: Pain, Moderate (Pain Scale 4-6 Last Admin: 11/08/21 22:25 Dose: 5 mg Documented By: AMOL Pharmacy Consult (Consult Rx Perform Med Rec) 1 each MISCELLANE ONCE PRN PRN Reason: Consult order Sodium Chloride (0.9 % Sodium Chloride Flush 3 Ml Syringe) 3 ml IVFLUSH QSHIFT [facility] Last Admin: 11/11/21 09:07 Dose: 3 ml Documented By: GOPAL Labs CBC & Chem 7: 11/09/21 05:41 11/09/21 05:41 Microbiology Microbiology Results: Microbiology 11/08/21 12:19 Blood Culture - Preliminary Blood - Venous No growth after 48 hours. 11/08/21 12:19 Blood Culture - Preliminary Blood - Venous No growth after 48 hours. Assessment and Plan (1) Spontaneous pneumothorax: Status: Acute Plan THis is a 41 yo, relatively healthy, female with a PMH of prior spontaneous PTX who presents with sudden onset of R sided chest pain, pleuritic in nature. She is diagnosed with a pneumothorax. She will now be admitted. 1. Spontaneous Pneumothorax -chest x-ray this a.m. with complete resolution of pneumothorax(x3) -pigtail to water seal...CXR in am 2. Tobacco use nicotine patch if she needs cessation encouraged. Full Code DVT pptx -- lovenox Requires ongoing hospitalization for closed chest drainage secondary pneumothorax Quality Stroke Does the patient have a stroke diagnosis?: No VTE Prior VTE?: No VTE Risk Level:: Medical - moderate - high VTE Device Contraindication: N/A - Device Ordered VTE Drug Contraindication: Treatment Not Indicated
[2021-11-11] MEDS: Morphine Sulfate 2 MG/ML CARTRIDGE IVPUSH (21:12)
[2021-11-12] VITALS: BP 103/70; PULSE 68; RESP 18; TEMP 37.1; O2SAT 96
[2021-11-12 04:00] VITALS: BP 111/68; PULSE 68; RESP 20; TEMP 37.1; O2SAT 98
[2021-11-12 07:15] VITALS: BP 147/80; PULSE 89; RESP 19; TEMP 36.4; O2SAT 93
[2021-11-12] MEDS: 0.9 % Sodium Chloride Flush 3 ML SYRINGE IVFLUSH (09:26)
--- NOTE | 2021-11-12 12:07 | P.CONPL_ITS ---
History of Present Illness History of Present Illness Consult date: 11/12/21 Chief complaint: Spontaneous Pneumothorax Narrative: 41-year-old lady, active 20 pack-year smoker, with prior history of spontaneous right-sided pneumothorax in 2019 admitted on 11/08/2021 with recurrence of spont aneous right-sided pneumothorax. Patient has had right-sided chest tube placed with resolution of pneumothorax. She denies family of prior personal history of lung disease. Review of Systems Constitutional: Constitutional: Denies daytime sleepiness, Denies excessive sweating, Denies fatigue, Denies fever(s), Denies lethargy, Denies malaise, Denies night sweats, Denies snoring and Denies weight loss Eyes: Eyes: Denies blurry vision and Denies itchy eyes ENT: Denies nasal congestion, Denies post nasal drip, Denies sinus pain, Denies sinus pressure and Denies other ( Thrush) Cardiovascular: Cardiovascular: Denies chest pain, Denies pedal edema, Denies dyspnea, Denies orthopnea and Denies paroxysmal nocturnal dyspnea Respiratory: Respiratory: Denies cough, Denies hemoptysis, Denies excessive ph legm production, Denies dyspnea, Denies snoring and Denies wheezing Gastrointestinal: Gastrointestinal: Denies abdominal pain and Denies heartburn Musculoskeletal: Musculoskeletal: Denies myalgias, Denies arthralgias and Denies joint swelling Integumentary/Breasts: Skin/Breast: Denies rash Neurologic: Denies memory loss and Denies seizure-like activity Psychiatric: Psychiatric: Denies abnormal sleep pattern, Denies anxiety and Denies memory loss Endocrine: Endocrine: Denies excessive sweating, Denies fatigue and Denies heat intolerance Hematologic/Lymphatic: Hematologic/Lymphatic: Denies easy bruising Allergic/Immunologic: Allergic/Immunologic: Denies itchy eyes, Denies seasonal rhinorrhea and Denies wheezing PMFSH Past Medical History Medical History Abnormal Pap smear of cervix Kidney problem Renal calculi Spontaneous pneumothorax Surgical History Surgical History H/O cystoscopy Social History Social History Household Members: Family Housing: House Do you presently have visiting nurse or other home services: No Alcohol intake: current Alcohol intake frequency: holidays/special occasions only Patient Tobacco Use Status: Current everyday Tobacco user Tobacco use type: Cigarette Cigarette Packs Per Day: 1 Cigarettes Per Day: 20.0 service: No Current occupational status: employed Meds Allergies Allergy/AdvReac Type Severity Reaction Status Date / Time bee pollen [BEE STINGS] Allergy Severe ANAPHYLAXIS Verified 11/08/21 06:20 bees Allergy Severe anaphylaxis Uncoded 11/08/21 06:20 Bee sting Allergy Unknown Unknown Uncoded 11/08/21 06:20 Active Medications: Current Medications Acetaminophen (Acetaminophen 325 Mg Tablet) 650 mg PO Q6H PRN PRN Reason: Pain, Mild (Pain Scale 1-3) Enoxaparin Sodium (Enoxaparin Sodium 40 Mg/0.4 Ml Syringe) 40 mg SUBCUT Q24H [facility] Last Admin: 11/12/21 07:27 Dose: Not Given Morphine Sulfate (Morphine Sulfate 2 Mg/Ml Cartridge) 2 mg IVPUSH Q3H PRN; Protocol PRN Reason: Pain, Severe (Pain Scale 7-10) Last Admin: 11/11/21 21:12 Dose: 2 mg Ondansetron HCl (Ondansetron Hcl 4 Mg/2 Ml Vial) 4 mg IVPUSH Q8H PRN PRN Reason: Nausea and Vomiting Oxycodone HCl (Oxycodone Hcl Immed Release 5 Mg Tablet) 5 mg PO Q6H PRN PRN Reason: Pain, Moderate (Pain Scale 4-6 Last Admin: 11/08/21 22:25 Dose: 5 mg Pharmacy Consult (Consult Rx Perform Med Rec) 1 each MISCELLANE ONCE PRN PRN Reason: Consult order Sodium Chloride (0.9 % Sodium Chloride Flush 3 Ml Syringe) 3 ml IVFLUSH QSHIFT [facility] Last Admin: 11/12/21 09:26 Dose: 3 ml Home Medications Medication Instructions Recorded Confirmed Last Taken Type No Known Home Meds 11/08/21 11/08/21 Unknown History Physical Exam Vital Signs: Vital Signs: Last Vital Signs Temp 97.6 F 11/12/21 07:15 Pulse 89 11/12/21 07:15 Resp 19 11/12/21 07:15 BP 147/80 H 11/12/21 07:15 Pulse Ox 93 11/12/21 07:15 O2 Del Method 11/12/21 07:15 O2 Flow Rate 1 11/12/21 07:15 BMI result Body Mass Index 34.9 Const: General: no acute distress and alert Nutritional Appearance: not obese Orientation/consciousness: Other orientation findings ( oriented) HEENT: Head: Yes atraumatic Mouth: no other ( thrush) Throat: No postnasal drainage Eyes: General: appearance normal, both eyes and all related structures Sclerae: sclerae normal EOM: EOMs intact bilaterally Neck: Neck: Yes supple Lymphatic: no lymphadenopathy noted Resp: Effort & Inspection: normal respiratory effort and no use of accessory muscles Auscultation: clear to auscultation bilaterally Cardio: Rate: regular rate Rhythm: regular rhythm Heart sounds: no gallops, no murmurs and no rubs GI: Palpation (GI): Soft to palpation and Other GI palpation findings present ( nontender) Skin: General skin exam: other ( warm) Rashes: no rashes Extrem: General: No clubbing, No cyanosis and No edema Results Laboratory Findings CBC and BMP: 11/09/21 05:41 11/09/21 05:41 ABG, PT/INR, D-dimer: PT/INR, D-dimer PT 10.9 SEC (10.0-13.1) 11/08/21 07:02 INR 1.0 (0.9-1.1) 11/08/21 07:02 Abnormal lab findings: Abnormal Labs 11/08/21 11/08/21 11/09/21 06:22 06:22 05:41 RBC 3.80 L MCV 98.4 H MCH 33.1 H [place] % (Auto) 11.9 H Eos % (Auto) 4.3 H Anion Gap 10 L Calcium 11/09/21 05:41 RBC MCV MCH [place] % (Auto) Eos % (Auto) Anion Gap 8 L Calcium 8.2 L Microbiology: Microbiology 11/08/21 12:19 Blood - Venous Blood Culture - Preliminary No growth after 48 hours. 11/08/21 12:19 Blood - Venous Blood Culture - Preliminary No growth after 48 hours. Assessment and Plan (1) Spontaneous pneumothorax: Status: Acute Plan Impression: 41-year-old lady, smoker, with recurrent right-sided spontaneous pneumothorax status post chest tube with resolution. Recommendations: Check VEGF-D level. Outpatient thoracic referral for pleurodesis. Will remove chest tube if no pneumothorax recurrent on clamping. Procedures Date of Service Date of Service: 11/12/21
[2021-11-12 12:48] VITALS: BP 140/80; PULSE 83; RESP 20; TEMP 36.6; O2SAT 100
--- NOTE | 2021-11-12 14:49 | PM.DS ---
DS: Providers Provider Date of Service: 11/12/21 Date of admission: 11/08/21 11:04 Date of discharge: 11/12/21 Primary care physician: Unknown Physician Consults: 11/12/21 10:40 Consult to Pulmonology Routine Consulting Provider: Jed Gonzalez Reason for consultation: Pneumothorax Has provider been notified: Yes DS: Diagnosis Discharge Diagnosis (1) Spontaneous pneumothorax: Status: Acute DS: Summary Hospital Course Hospital Course: 41 yo F with a PMH of Spontaneous PTX in 2019, nephrolithiasis who presents to the hospital with complaints of sudden onset right sided chest pain which woke her up from sleep around 4-5AM on the day of admission. The patients reports pleuritic type R chest pain which was similar to her prior episode. She reports being in her usual state of health otherwise. She denies cough. She does endorse 1PPD tobacco smoking. In the ED imaging studies showed pneumothorax and she has undergone placement of a pig tail cath. She will not be admitted for further treatment. Hospital course X-ray after pigtail cath demonstrated complete resolution of pneumothorax. She was admitted to telemetry; Pleur-Evac (-20). .. Less than 80 cc drainage. On 11/11, patient change to water seal. Over the next 24 hours, she remained asymptomatic and portable chest x-ray demonstrated complete resolution of pneumothorax. On 11/12, pigtail catheter was clamped for 3 hours and repeat chest x-ray demonstrated normal expansion without evidence of pneumothorax. Pigtail was removed by Dr. Gonzalez (pulmonary). Repeat chest x-ray (3 hours after removal) demonstrated normal lung expansion without evidence of pneumothorax. She will be discharged to home to follow-up with thoracic surgery as this is her 3rd spontaneous pneumothorax. Time Spent with Patient Time attestation: Total time spent providing and/or coordinating discharge services: Discharge coordination time: Greater than 30 minutes Quality: Safe Use of Opioids Does Pt have an Active Cancer Diagnosis on the Problem List?: No Quality: Stroke Does the patient have a stroke diagnosis?: No Physical Exam Vital Signs: Vital Signs: Last Vital Signs Temp 97.8 F 11/12/21 12:48 Pulse 83 11/12/21 12:48 Resp 20 11/12/21 12:48 BP 140/80 H 11/12/21 12:48 Pulse Ox 100 11/12/21 12:48 O2 Del Method 11/12/21 12:48 BMI result Body Mass Index 34.9 Const: Other: No acute distress Resp: Other: Good aeration with scattered expiratory wheezes throughout and coarse rhonchi that clear with a cough Cardio: Other: No S4; positive S1-S2; no S3 murmurs rubs or gallops GI: Other: Soft nontender nondistended normoactive bowel sounds Neuro: Other: Cranial nerves 2-12 grossly intact. Motor is 5/5 in all extremities. Sensation intact. Cognition appropriate Extrem: Other: No edema bilaterally DS: Data Data Completed and Pending Labs on day of discharge: Preliminary micro results at discharge 11/08/21 12:19 Blood Culture - Preliminary Blood - Venous No growth after 48 hours. 11/08/21 12:19 Blood Culture - Preliminary Blood - Venous No growth after 48 hours. Discharge Plan Discharge Patient Disposition: Home, Self-Care Discharge Diagnosis: Spontaneous pneumothorax Referrals: Physician,Unknown J [Primary Care Provider] - 1 Week Discharge Medications: New oxycodone 5 mg Tablet 5 mg PO Q6H PRN (Reason: Pain, Moderate (Pain Scale 4-6) Qty: 20 0RF Rx Instructions: Partial Fill upon patient request. Diet: Advance to usual diet Activity on Discharge: As tolerated Stand Alone Forms: Patient Portal Discharge page Care Plan Goals: No bathing or swimming for 6 weeks. Keep dressing on for 48 hours and can removed. Health Concerns: Use oxycodone as needed for pain. Prescription sent to pharmacy Plan of Treatment: Dr. Mac's (thoracic surgeon) office will call you for an appointment Assessment: See discharge summary
[2021-11-12 15:32] VITALS: BP 147/59; PULSE 76; RESP 18; TEMP 35.8; O2SAT 99
== END 2021-11-12 17:37 | disposition home or self-care (01) | DRG 143 ==
LOC: HO.ED 08:41 → HO.EDOVER 11:19 → HO.IMC 17:27
PROVIDERS: Radiology Diagnostic Radiology; Admitting Provider Family Medicine; Emergency Provider Emergency Medicine; Visit Provider Hospitalist
PROC: 0W9930Z Drainage of Right Pleural Cavity with Drainage Device, Percutaneous Approach (ICD-10-PCS; CPT 32551; principal; 2021-11-08 09:00)
DX: J93.83 Other pneumothorax (principal); F17.210 Nicotine dependence, cigarettes, uncomplicated; Z20.822 Contact with and (suspected) exposure to COVID-19; Z71.6 Tobacco abuse counseling; Z87.442 Personal history of urinary calculi; Z91.030 Bee allergy status
CPT/HCPCS: 32551; 36415; 71045; 71250; 80048; 84484; 85025; 85027; 85610; 87040; 87635; 93005; 96361; 96374; 96375; 99284; 99285; C1729; J1170; J1650; J1885; J2270; J2405; Q4186

== ENCOUNTER → 2021-11-16 10:16 | Outpatient (BNVA) | payer OTHER, SELFPAY | PROVIDERS: Visit Provider Surgery | DX: J93.83 Other pneumothorax (principal); F17.210 Nicotine dependence, cigarettes, uncomplicated | CPT/HCPCS: 99202 ==

== ENCOUNTER 2021-12-06 14:15 | Inpatient (IN) | payer OTHER, SELFPAY ==
[2021-11-29 11:50] VITALS: BMI 21.6
[2021-11-29 11:55] VITALS: BP 152/75; PULSE 104; RESP 20; O2SAT 97
--- NOTE | 2021-11-29 12:07 | HO.ANESPROP2 ---
Documented by User: Ely Soler NP 11/29/21 12:37 HPI - Anesthesia Eval Consult details Narrative: 41yo F for Right ?Thoracoscopy w/Video Assist,bleb resection and talc/mechanical pleurodesis [facility] admit 11/2021 with spontaneous pneumothorax. 2nd in lifetime. PMFSH Active Problems Active Problems: All Active Problems (Updated 11/20/21 @ 00:02 by Background Ilya) Recurrent spontaneous pneumothorax (Acute) Cigarette smoker (Acute) Past Medical History Medical History Abnormal Pap smear of cervix History of renal calculi Spontaneous pneumothorax Family History Family history of problems with anesthesia: No Surgical History Surgical History History of chest tube placement (~2018) History of chest tube placement (~2021) History of cystoscopy (~2019) History of lithotripsy (~2018) History of Problems with Anesthesia: No Social History Social History Household Members: Family Housing: House Are you a primary pharmacy customer care specialist to a significant other at home: No Do you presently have visiting nurse or other home services: No Alcohol intake: current Alcohol intake frequency: a few times a week Patient Tobacco Use Status: Current everyday Tobacco user Tobacco use type: Cigarette Cigarette Packs Per Day: 1 Cigarettes Per Day: 10 Years Smoked: 30 Smoked in Last 30 Days: Yes Patient Interested in Nicotine Replacement: Yes Patient Given Instructions on How to Stop Smoking: Yes Date Education Initiated: 11/29/21 Second Hand Smoke Exposure: No Use of substances other than those prescribed or required for medical reasons: No Have you been hit, kicked, punched, or otherwise hurt by someone within the past year? If so, by whom?: No Are you DNR?: No Advance Directives: Yes Advance Directives Information Provided: No Advance Directives on File: Yes Advance Directives Date on File: 11/14/21 Recently lost weight without trying: No Eating poorly because of decreased appetite: No Nutrition Risks: No Nutritional Risk Patient : No FDLMP: 11/07/21 : No Poor oral hygiene: No service: No Current occupational status: employed Narrative Narrative: No recent illness No CP/SOB with > 4 METS Meds Allergies Allergy/AdvReac Type Severity Reaction Status Date / Time bee pollen [BEE STINGS] Allergy Severe ANAPHYLAXIS Verified 11/28/21 09:55 bees Allergy Severe anaphylaxis Uncoded 11/28/21 09:55 Home Medications Medication Instructions Recorded Confirmed Last Taken Type No Known Home Meds 11/29/21 11/29/21 Unknown History Exam Exam Date and Time: November 29, 2021 1207 Height,Weight and Vital Signs: Height 5 ft 5 in Weight 58.967 kg Last Vital Signs Pulse 104 H 11/29/21 11:55 Resp 20 11/29/21 11:55 BP 152/75 H 11/29/21 11:55 Pulse Ox 97 11/29/21 11:55 O2 Del Method 11/29/21 11:55 Pertinent Lab Results Pertinent Lab Results: Laboratory Tests 11/09/21 11/09/21 05:41 05:41 WBC 8.4 Hgb 12.5 Hct 37.4 Plt Count 223 Sodium 136 Potassium 4.4 Chloride 108 Carbon Dioxide 24 BUN 13 Creatinine 0.75 Narrative Narrative: EKG 11/2021 Vent. Rate : 055 BPM ? ? Atrial Rate : 055 BPM ?? P-R Int : 130 ms? QRS Dur : 084 ms ? ? QT Int : 444 ms ? ? ? P-R-T Axes : 081 078 071 degrees ?? QTc Int : 424 ms ? Sinus bradycardia Otherwise normal ECG When compared with ECG of 08-NOV-2021 06:14, No significant change was found Airway Mallampati Class: I TM Dist: >3cm Neck ROM: Full Loose/Missing/Broken Teeth: Yes (molars missing) Heart: RRR Lungs: CTAB Assessment and Plan Assessment Anesthesia Assessment: Anesthesia Plan Discussed, Smoking Cess. Discussed and PAT Visit Final Anesthetic Review Family History of Problems with Anesthesia: No History of Problems with Anesthesia: No Documented by User: Gurmeet Milan MD 12/06/21 14:01 HPI - Anesthesia Eval Consult details Narrative: 41yo F for Right ?Thoracoscopy w/Video Assist,bleb resection and talc/mechanical pleurodesis [facility] admit 11/2021 with spontaneous pneumothorax. As per the patient this is the 3rd time it has happned PMFSH Past Medical History Medical History Abnormal Pap smear of cervix History of renal calculi Spontaneous pneumothorax Surgical History Surgical History History of chest tube placement (~2018) History of chest tube placement (~2021) History of cystoscopy (~2019) History of lithotripsy (~2018) Social History Social History Household Members: Family Housing: House Are you a primary pharmacy customer care specialist to a significant other at home: No Do you presently have visiting nurse or other home services: No Alcohol intake: current Alcohol intake frequency: a few times a week Patient Tobacco Use Status: Current everyday Tobacco user Tobacco use type: Cigarette Cigarette Packs Per Day: 1 Cigarettes Per Day: 10 Years Smoked: 30 Smoked in Last 30 Days: Yes Patient Interested in Nicotine Replacement: Yes Patient Given Instructions on How to Stop Smoking: Yes Date Education Initiated: 11/29/21 Second Hand Smoke Exposure: No Use of substances other than those prescribed or required for medical reasons: No Have you been hit, kicked, punched, or otherwise hurt by someone within the past year? If so, by whom?: No Are you DNR?: No Advance Directives: Yes Advance Directives Information Provided: No Advance Directives on File: Yes Advance Directives Date on File: 11/14/21 Recently lost weight without trying: No Eating poorly because of decreased appetite: No Nutrition Risks: No Nutritional Risk Patient : No FDLMP: 11/07/21 : No Poor oral hygiene: No service: No Current occupational status: employed Meds Allergies Allergy/AdvReac Type Severity Reaction Status Date / Time bee pollen [BEE STINGS] Allergy Severe ANAPHYLAXIS Verified 11/28/21 09:55 bees Allergy Severe anaphylaxis Uncoded 11/28/21 09:55 Home Medications Medication Instructions Recorded Confirmed Last Taken Type No Known Home Meds 11/29/21 11/29/21 Unknown History Exam Airway Mallampati Class: II Loose/Missing/Broken Teeth: Yes (molars missing, poor dentition globally . Upper chipped tooth ) Assessment and Plan Assessment Anesthesia Assessment: Chart Reviewed Final Anesthetic Review NPO: Yes ASA Class: III Final Preanesthetic Review: Consent Obtained/Reviewed and Anes Risks/Benef Reviewed Patient Risk: Intermediate Procedure Risk: Intermediate Anesthetic Plan Anesthetic Plan: GA Disposition: Inp. Admit - Standard Bed
[2021-12-06] VITALS (13 sets, daily range): BP systolic 90–112; BP diastolic 51–76; PULSE 55–84; RESP 16–34; TEMP 36.1–36.5; O2SAT 97–100; BMI 20.7
--- NOTE | ~2021-12-06 | XR_ITS ---
EXAMINATION: XR CHEST CLINICAL INFORMATION: Postop bleb resection COMPARISON: Earlier exam same day TECHNIQUE: Portable 6:35 PM view of the chest was obtained. FINDINGS: Postsurgical changes. Chest tube overlies right apex. No measurable pneumothorax. No significant abnormality is noted involving the heart, lungs, mediastinum, bony thorax or soft tissues. XR/XR chest 1V IMPRESSION: No pneumothorax.
--- NOTE | ~2021-12-06 | XR_ITS ---
EXAMINATION: XR CHEST CLINICAL INFORMATION: Postop day 1 status post R VATS apical bleb resection/pleurodesis COMPARISON: 12/06/2021 TECHNIQUE: Frontal view of the chest was obtained. FINDINGS: Right apical chest tube. Suture line at the right apex. Cardiac leads overlie the chest. The lungs are well expanded. There is no focal consolidation, edema, or effusion. Questionable subtle pleural line at the right apex may represent trace pneumothorax.. The cardiomediastinal silhouette is within normal limits. No acute osseous abnormality. Persistent subcutaneous emphysema over the right chest wall. XR/XR chest 1V IMPRESSION: Questionable trace right apical pneumothorax. Right-sided chest tube in place.
--- NOTE | ~2021-12-06 | XR_ITS ---
EXAMINATION: XR CHEST CLINICAL INFORMATION: Respiratory distress, postop COMPARISON: Chest x-ray 11/12/2021 TECHNIQUE: Frontal view of the chest was obtained. FINDINGS: Right chest tube with tip projecting at the right lung apex. Suspected chain suture material in the adjacent right upper lobe. No appreciable pleural line or pleural fluid collection. Subcutaneous emphysema along the lower right lateral chest wall. Slightly hazy attenuation in the lower lungs left greater than right, likely atelectasis. No definite pleural effusions. Normal cardiomediastinal silhouette. No evidence of pulmonary edema. No acute osseous injury. XR/XR chest 1V IMPRESSION: 1. Right apical chest tube. No visible pleural line/pneumothorax identified. 2. Mild bilateral atelectasis. No consolidation or definite pleural effusions.
--- NOTE | ~2021-12-06 | XR_ITS ---
EXAMINATION: XR CHEST CLINICAL INFORMATION: Status post right bleb resection/pleurodesis. COMPARISON: Chest 12/11/2021 TECHNIQUE: Frontal view of the chest was obtained. FINDINGS: The lungs are well-expanded with patchy atelectatic changes left lung base. Rest of the lungs are clear. The heart size and pulmonary vascularity is normal. No gross bony abnormality seen XR/XR chest 1V IMPRESSION: Minimal atelectatic changes in left lung base.
--- NOTE | ~2021-12-06 | XR_ITS ---
EXAMINATION: XR CHEST CLINICAL INFORMATION: Status post right apical bleb, pleurodesis. Followup. COMPARISON: Chest radiograph done on 12/07/2021. TECHNIQUE: Frontal view of the chest was obtained. FINDINGS: Interval development of decreased lung volume within the left hemithorax and diffuse airspace disease is noted, most consistent with pneumonia/hemorrhage or aspiration. Postsurgical changes are noted at right lung apex. Right hemithoracic chest tube is apically directed projecting in the region of the apex. No significant change. No definite evidence of any pneumothorax. XR/XR chest 1V IMPRESSION: Interval development of asymmetric low lung volume within the left hemithorax associated with diffuse patchy airspace disease, may represent pneumonia/hemorrhage and/or aspiration, new since 12/07/2021. Stable postsurgical changes at right lung apex and no definite evidence of pneumothorax.
--- NOTE | ~2021-12-06 | XR_ITS ---
EXAMINATION: XR CHEST CLINICAL INFORMATION: Status post right pulmonary surgery, left lung opacity. COMPARISON: 12/09/2021 chest radiograph. TECHNIQUE: Frontal view of the chest was obtained. FINDINGS: Support devices: Interval removal of right apical chest tube. Post surgical changes in the right apex with chain sutures in place. Trace right apical pneumothorax. Interval decrease in opacification in the left mid and lower lung field with mild elevation of the left hemidiaphragm. Cardiomediastinal shift to the left is not significantly changed. XR/XR chest 1V IMPRESSION: 1. Post surgical changes and trace right apical pneumothorax without significant change status post chest tube removal. 2. Interval decrease in left lower lung opacification suggesting improving pleural effusion/atelectasis. No significant change in cardiomegaly mediastinal shift to the left.
--- NOTE | ~2021-12-06 | XR_ITS ---
EXAMINATION: XR CHEST CLINICAL INFORMATION: Follow-up atelectasis. COMPARISON: 12/10/2021 TECHNIQUE: 2 views of the chest were obtained. XR/XR chest 2V FINDINGS AND IMPRESSION: Again noted is a curvilinear staple line at the right apex and persistent trace right apical pneumothorax. Small right pleural effusion is unchanged. Left lower lobe remains completely opacified/collapsed. Persistent left-sided shift of the cardiomediastinal silhouette and elevation of left diaphragm due to the volume loss. Overall, no significant change in appearance of the chest compared to 12/10/2021.
--- NOTE | ~2021-12-06 | XR_ITS ---
EXAMINATION: XR CHEST CLINICAL INFORMATION: Status post resection of right apical bleb and pleurodesis. Follow-up. COMPARISON: Chest radiograph 12/08/2021 TECHNIQUE: Frontal view of the chest was obtained. FINDINGS: Right-sided chest tube and surgical changes at the right apex are similar to the prior. There may be trace right pleural fluid. No definite pneumothorax identified. Since the previous study there is increasing volume loss and opacity within the left hemithorax with shift of the mediastinum toward the left. The cardiomediastinal contours are obscured by the left-sided opacity. Structures of the chest wall are unchanged. XR/XR chest 1V IMPRESSION: Stable postsurgical changes on the right without appreciable pneumothorax. Increasing volume loss and opacity on the left most suggestive of extensive atelectasis.
--- NOTE | ~2021-12-06 | XR_ITS ---
EXAMINATION: XR CHEST CLINICAL INFORMATION: Atelectasis COMPARISON: Previous chest x-ray from earlier the same day TECHNIQUE: Frontal view of the chest was obtained. FINDINGS: The cardiac and mediastinal contours are stable. There is improved aeration of the left lung. There is residual atelectasis or small infiltrate at the left lung base. The right lung is clear. There may be a small right pleural effusion. There is no left pleural effusion. There is no pneumothorax. XR/XR chest 1V IMPRESSION: Improved aeration of the left lung. Residual atelectasis or small infiltrate at the left lung base.
[2021-12-06 11:04] LABS: UPreg QC Valid YES; Urine Pregnancy NEGATIVE (NEGATIVE)
[2021-12-06 11:15] LABS: COVID-19 Test Negative (Negative); IDNOW Serial# 16C4AD1C
[2021-12-06] MEDS: Lactated Ringers 1,000 ML 100 ML IVCONT (11:17)
--- NOTE | 2021-12-06 12:35 | MHC.SHP ---
Pre-Procedural Eval Section A Date of Service: 12/06/21 The patient is an INPATIENT: No The History & Physical has been completed within 30 days and I have reviewed it.: Yes Section B Chief Complaint: Other pneumothorax Allergies: Allergies Allergy/AdvReac Type Severity Reaction Status Date / Time bee pollen [BEE STINGS] Allergy Severe ANAPHYLAXIS Verified 11/28/21 09:55 bees Allergy Severe anaphylaxis Uncoded 11/28/21 09:55 Plan I have reviewed the history and physical and performed a pertinent physical examination on my patient. No changes have occurred unless specified.
--- NOTE | 2021-12-06 14:04 | P.OP_ITS ---
Operative Note Operative Note Date of Service: 12/06/21 Narrative: Preoperative diagnosis: Recurrent right spontaneous pneumothorax Postoperative diagnosis: Same Operation: right VATS bleb resection and pleurodesis, bronchoscopy with aspiration Surgeon: Mini Ram MD Trench Digger Helper: Melecio Rich Specimens: Pleural rind and pleural fluid for pathology/cytology and microbiology EBL: 25 cc Anesthesia: General Operation in detail: The patient was brought to the operating room, placed supinethe operative table, anesthesia monitoring devices were placed, and the patient was intubated with a double-lumen endotracheal tube. The tube was confirmed with a pediatric bronchoscope and a bronchoscopy was done with no endobronchial lesions and minimal secretions. The patient was then turned with the right chest up And chest was prepped and draped in the standard sterile fashion. A time-out was performed confirming the correct patient, site, and procedure. After injection of local anesthetic, a 1 cm incision was made the 7th intercostal space posterior axillary line and the chest was entered. With blunt dissection we of the clear some space around this and there was clearly adhesions within the chest. A 2nd incision was then made more superiorly and a nteriorly over the 5th intercostal space about 3 cm in size after injection of local anesthetic chest was entered. a 3rd incision was made posteriorly and chest was entered under direct vision. First, some adhesions were taken down from the apex directly on Apical bleb. This was done with Harmonic scalpel. we then elevated the apical portion of the upper lobe and multiple firings of the green load 45 mm echelon stapler were fired across the apex removing the apical blebs. Next, using a Bovie scratch pad a mechanical pleurodesis was done over the entire chest wall. Talcum powder was then placed into the chest apically and towards the diaphragm and distributed evenly with CO2 insufflation connected to the Yankauer. Once this was done, a 28 Polish chest tube was placed with extra holes in it to lie posteriorly and up towards the apex with the more inferior holes over the diaphragm. The chest tube was secured in place with an 0 Vicryl suture and the remaining incisions were closed with a deep 0 Vicryl suture followed by running 3-0 Vicryl suture and Dermabond glue. Patient tolerated seizure well as brought to the cover room in stable condition.
--- NOTE | 2021-12-06 14:38 | PHA.MEDREC ---
Pharmacy Consult ? Medication Reconciliation Pharmacy has reviewed the medication reconciliation completed by nursing. Nidia Henderson, OlesyaD
[2021-12-06] MEDS: HYDROmorphone HCl 0.5 MG/0.5 ML SYRINGE 0.25 MG IVPUSH ×2 (15:30→15:46)
--- NOTE | 2021-12-06 16:44 | PC.NURSE ---
per anesthesia cxr reviewed ok to discharge to inpatient unit per dr. cardoso
[2021-12-06] MEDS: oxyCODONE HCl Immed Release 5 MG TABLET 10 MG PO ×2 (17:47→22:27)
[2021-12-06] MEDS: 0.9 % Sodium Chloride Flush 3 ML SYRINGE IVFLUSH ×2 (17:49→20:03)
[2021-12-06] MEDS: Ketorolac Tromethamine 15 MG/ML VIAL 7.5 MG IVPUSH (22:31)
[2021-12-07] VITALS (8 sets, daily range): BP systolic 99–123; BP diastolic 60–73; PULSE 56–80; RESP 15–19; TEMP 36.2–36.9; O2SAT 95–100
[2021-12-07] MEDS: HYDROmorphone HCl 0.5 MG/0.5 ML SYRINGE IVPUSH ×4 (01:42→22:29)
[2021-12-07] MEDS: Ketorolac Tromethamine 15 MG/ML VIAL 7.5 MG IVPUSH ×3 (06:17→21:56)
--- NOTE | 2021-12-07 06:43 | HO.POSTANES ---
Post Anesthesia Evaluation Post Anesthesia Evaluation Vital Signs: Vital Signs Temp Pulse Resp BP Pulse Ox O2 Del Method O2 Flow Rate 12/07/21 04:00 98.3 F 65 18 99/61 98 Nasal Cannula 2 12/07/21 00:52 98.4 F 73 15 123/70 95 Nasal Cannula 2 12/07/21 00:29 80 16 100 Nasal Cannula 2 12/06/21 20:00 97.7 F 84 16 101/76 97 Room Air 2 Anesthesia: General Endotracheal-GETA (DANETTE) Mental Status: Awake Pain Control: Satisfactory Nausea/Vomiting: None Hydration: Adequate Anesthesia-Related Issues: No Anes. Related Issues
[2021-12-07 07:22] LABS: MANUAL DIFF FLAG NO
[2021-12-07 07:24] LABS: Basophils Percent Auto 0.2 % (0-2); Eosinophils Percent Auto 0.1 % (0-4); Hematocrit 36.8 % (37.0-47.0); Hemoglobin 12.1 g/dl (12.0-16.0); Imm Gran Abs Auto 0.08 X10*3/uL (0.00-0.03); Imm Gran Pct Auto 0.5 % (0.0-0.4); Lymphocytes Absolute Auto 2.3 X10*3/uL (1.2-4.9); Lymphocytes Percent Auto 14.3 % (20-40); Mean Corpuscular HGB Conc 32.9 g/dl (31.0-35.0); Mean Corpuscular Hemoglobin 32.5 pg (27.0-33.0); Mean Corpuscular Volume 98.9 fL (80.0-98.0); Mean Platelet Volume 11.1 fL (9.4-12.3); Monocytes Absolute Auto 1.3 X10*3/uL (0.1-1.2); Monocytes Percent Auto 8.2 % (2-11); Neutrophils Absolute Auto 12.1 x10*3/uL (2.0-8.3); Neutrophils Percent Auto 76.7 % (45-73); Platelet Count 323 X10*3/uL (160-400); Red Blood Count 3.72 X10*6/uL (4.20-5.50); Red Cell Distribution Width 13.6 % (11.0-16.0); White Blood Count 15.8 X10*3/uL (4.8-10.8)
[2021-12-07 07:42] LABS: Anion Gap 13 (12-20); Blood Urea Nitrogen 15 mg/dL (9-16); Calcium 8.5 mg/dL (8.4-10.2); Carbon Dioxide 25 mmol/L (22-29); Chloride 103 mmol/L (96-108); Creatinine Clr Calc Pharmacy 87.1; Estimated Glomerular Filt Rate > 60; Glucose Random 106 mg/dL (60-115); Potassium 4.3 mmol/L (3.3-5.1); Sodium 137 mmol/L (135-145)
--- NOTE | 2021-12-07 08:37 | MHC.CM.PN ---
No IMM required Patient lives with her parents and son. Is independent at home and community, No DME or services at home, Is employed, HCP on file, Not Covid vax'd, Does not have a PCP but will speak with insurance for information about PCP's, MotherJulien will transport home. D/C Plan: Home (self-care)
[2021-12-07] MEDS: Acetaminophen 325 MG TABLET 650 MG PO ×2 (10:26→21:55)
[2021-12-07] MEDS: 0.9 % Sodium Chloride Flush 3 ML SYRINGE IVFLUSH ×3 (10:26→21:56)
[2021-12-07] MEDS: Docusate Sodium 100 MG CAPSULE PO (10:26)
--- NOTE | 2021-12-07 17:21 | PM.PNTS ---
Subjective Subjective Date of Service: 12/07/21 Interval history: Patient was seen and examined this afternoon. He needs to have significant pain surrounding her right-sided chest tube. Her chest tube has remained on -20 low wall suction overnight with no detectable air leak and minimal serous sanguinous fluid output. She denies any concerning symptoms such as fevers, chills, hemoptysis or increased shortness of breath. Her morning chest x-ray shows lungs are well-expanded with a possibility of a trace right apical pneumothorax. Physical Exam Vital Signs: Vital Signs: Last Vital Signs Temp 98.0 F 12/07/21 16:00 Pulse 59 12/07/21 16:00 Resp 19 12/07/21 16:00 BP 120/65 12/07/21 16:00 Pulse Ox 98 12/07/21 16:00 O2 Del Method 12/07/21 16:00 O2 Flow Rate 2 12/07/21 16:00 BMI result Body Mass Index 20.7 Const: General: alert, awake and Physically active; No acute distress HEENT: Other: Trachea midline with no evidence of subcu emphysema Chest: Other: Right-sided chest tube remains in place and secure with laparoscopic surgical incisions clean dry and intact. Chest tube remains attached to -20 low wall suction with approximately 180 cc of serosanguineous fluid output. Resp: Other: Breath sounds clear bilaterally with no adventitious sounds such as wheezes or rhonchi. Cardio: Jugular venous distension: no JVD Rate: regular rate Rhythm: regular rhythm Heart sounds: S1 normal heart sound present, S2 normal heart sound present, no gallops, no murmurs and no rubs GI: Inspection: Yes normal to inspection Palpation (GI): Soft to palpation and nontender Extrem: Other: No upper or lower extremity edema Procedures Date of Service Date of Service: 12/07/21 Progress Note: A&P Assessment and plan (1) Recurrent spontaneous pneumothorax: Status: Acute Plan POD#1 s/p VATS Bleb resection and Pleurodesis with talc CXR this am showed no pleural effusion with a possible small trace right apical pneumothorax Keep chest tube to waterseal at this time 180cc of sanguinous drainage in chest tube atrium. There is no air leak noted with forceful exhalation or cough. Nursing to record output of chest tube q8 hr. Travis on atrium and I/O's Repeat CXR in am Ambulate 3-4 times daily in hallways, up to recliner chair with all meals Pulmonary toileting, incentive spirometer, cough and deep breathe, acapella Q4 hours Pain management: Continue PRN pain meds as ordered. Oxycodone PRN Tylenol scheduled Constipation: Bowel regimen as ordered DVT prophylaxis: Heparin SQ, pneumatic compression stockings Time Spent With Patient Time: Total time spent is greater than 50% in coordination of care (as documented) at patient's floor/unit and/or counseling patient: Quality Stroke Does the patient have a stroke diagnosis?: No VTE Prior VTE?: No VTE Risk Level:: Surgical - low VTE Device Contraindication: N/A - Device Ordered VTE Drug Contraindication: N/A - Med Ordered
[2021-12-07] MEDS: oxyCODONE HCl Immed Release 5 MG TABLET 10 MG PO (21:55)
[2021-12-08] VITALS (8 sets, daily range): BP systolic 109–148; BP diastolic 60–89; PULSE 52–77; RESP 16–30; TEMP 35.8–37; O2SAT 94–98
[2021-12-08] MEDS: HYDROmorphone HCl 0.5 MG/0.5 ML SYRINGE IVPUSH ×3 (03:08→18:43)
[2021-12-08] MEDS: Ketorolac Tromethamine 15 MG/ML VIAL 7.5 MG IVPUSH ×3 (08:06→23:01)
[2021-12-08] MEDS: 0.9 % Sodium Chloride Flush 3 ML SYRINGE IVFLUSH ×3 (08:07→23:48)
--- NOTE | 2021-12-08 10:14 | P.PNTS_ITS ---
Subjective Subjective Date of Service: 12/08/21 Interval history: Patient states she continues to have severe pain over the right chest associated with her incisions and chest tube insertion site. States she cannot take deep breaths or cough effectively because of this pain. States she feels short of breath due to this. Has been getting IS only to 500cc when used correctly. Has been OOB ambulating within the room and hallways. Has been voiding, but has not had a bowel movement yet. Has been passing gas. Denies any fever, chills, chest pain/pressure, abdominal pain, nausea/vomiting, bloating, palpitations. Physical Exam Vital Signs: Vital Signs: Last Vital Signs Temp 96.4 F L 12/08/21 08:04 Pulse 68 12/08/21 08:04 Resp 26 H 12/08/21 08:04 BP 139/89 12/08/21 07:45 Pulse Ox 98 12/08/21 08:04 O2 Del Method 12/08/21 08:04 O2 Flow Rate 4 12/08/21 08:04 Oxygen Flow Rate 2 12/07/21 14:01 BMI result Body Mass Index 20.7 General: No acute distress, resting comfortably in bed, well developed. Head: Normocephalic, atraumatic, symmetric Eyes: Sclera anicteric, eyelids without edema or erythema, +EOMS intact ENT: Oral mucosa and tongue are moist without lesions or exudates Neck: Soft, supple, symmetric, trachea midline, no crepitus Cardiovascular: Regular rate and rhythm, no murmur/rubs/gallops, BUE and BLE without edema, no calf tenderness bilaterally Respiratory: Diminished BS on L with scattered crackles, R BS clear. Breathing nonlabored, speaking in full sentences, on oxygen via nasal cannula. No use of accessory muscles. Multiple right sided chest incisions are C/D/I without erythema/drainage/open areas, minimal crepitus around incisions. Right chest tube x 1 to [facility] on -20 suction, small amount of brown drainage, no air leak. Gastrointestinal: Soft, non-tender, non-distended, +normoactive bowel sounds. Skin: Warm and dry throughout, no rashes Neurological: Alert and oriented x 3, no focal neurological deficit noted Psychiatric: No agitation, appropriate affect. Tearful towards the end of the visit. Procedures Date of Service Date of Service: 12/08/21 Progress Note: A&P Assessment and plan (1) Recurrent spontaneous pneumothorax: Status: Acute Assessment and Plan: POD#2 s/p R VATS apical bleb resection and talc/mechanical pleurodesis. CXR today pending radiology read, however upon my inspection the left lung has begun to opacify with ipsilateral tracheal deviation likely caused by mucous plugging. The right lung is clear without large pneumothorax (possible very small apical PTX) or large pleural effusion. Pain management needs to be of upmost importance due to patient now developing mucous plugging * Tylenol 650mg PO q6h ATC * Toradol 7.5mg PO ATC * Changed oxycodone around today. Ordered Oxycodone 5mg PO q4h SCHEDULED, with 2.5mg-5mg q4h prn based on pain scale. * IV Dilaudid q4h as needed only for SEVERE BREAKTHROUGH pain. This needs to be given as an emergency dose of pain medication only, not a first line med. Pulmonary toilet / L mucous plugging * Mucous plugging due to poor pulmonary toileting. * Needs to have pain controlled so can effectively participate. * IS * Flutter valve * Ordered chest PT to be done TID on left chest * Mucinex added. * If patient is unable to clear this on her own over the next 24 hours, or respiratory status declines, may need therapeutic bronchoscopy. Activity * Patient needs to be OOB ambulating in the hallways as much as possible, but at least 3-4 times per day. * Patient needs to be OOB to chair for all meals * Educated patient that sitting up 90' in bed is better than laying down, sitting up in chair is better than being in bed, and walking is better than all of that. Bowel regimen * May need suppository tomorrow if no BM. DVT prophylaxis * Heparin SQ. Patient has been refusing. Educated patient that in her postop state, especially given that she is in bed most of the day, that even though she is young she is at risk for DVT and encouraged accepting this medication. * SCDs at all times when not ambulating. * Early ambulation. GI prophylaxis: Famotidine PO Case discussed with Dr. Ram. Time Spent With Patient Time: Total time spent is greater than 50% in coordination of care (as documented) at patient's floor/unit and/or counseling patient: Quality Stroke Does the patient have a stroke diagnosis?: No VTE Prior VTE?: No VTE Risk Level:: Surgical - low VTE Device Contraindication: N/A - Device Ordered VTE Drug Contraindication: N/A - Med Ordered
[2021-12-08] MEDS: Famotidine 20 MG TABLET PO (11:00)
[2021-12-08] MEDS: oxyCODONE HCl Immed Release 5 MG TABLET PO ×4 (11:00→21:52)
[2021-12-08] MEDS: guaiFENesin LA 600 MG TAB.ER.12H PO ×2 (11:01→21:51)
[2021-12-08] MEDS: ondansetron HCL 4 MG/2 ML VIAL IVPUSH (11:29)
[2021-12-08] MEDS: Acetaminophen 325 MG TABLET 650 MG PO ×2 (14:26→21:51)
[2021-12-08] MEDS: Docusate Sodium 100 MG CAPSULE PO ×2 (15:47→21:51)
[2021-12-08] MEDS: Sennosides 8.6 MG TABLET 17.2 MG PO (15:48)
--- NOTE | 2021-12-08 15:57 | PC.NURSE ---
Patient complaining of trouble breathing. Noted to be tachypneic, shallow breathing, anxious Reporting pain to right side of chest. Assessed patient. VSS. o2 sat 94% on 3L. Small amt crepitus noted at chest tube insertion site. Chest tube to wall suction and appeared to be functioning appropriately. Small amt serosanguinous drainage in tubing. Provider notified. ordered stat cxr. Pain medication given as ordered. CXR read by provider, Lucinda SKINNER. Strongly encouraged pulmonary toilet, frequent ambulation and added mucinex. Patient pain much improved after medication and reassurance. Still feeling short of breath, but much less dyspneic. Has been oob ambulating in brown 4 x's 7-3 shift and sitting up in chair. o2 sat 93% on room air. Uses o2 intermittently.
[2021-12-09] VITALS (8 sets, daily range): BP systolic 115–143; BP diastolic 63–90; PULSE 70–96; RESP 15–24; TEMP 35.7–37; O2SAT 95–99
[2021-12-09] MEDS: oxyCODONE HCl Immed Release 5 MG TABLET PO ×6 (01:52→21:08)
[2021-12-09] MEDS: Acetaminophen 325 MG TABLET 650 MG PO ×4 (04:52→21:08)
[2021-12-09] MEDS: Ketorolac Tromethamine 15 MG/ML VIAL 7.5 MG IVPUSH (06:29)
[2021-12-09] MEDS: 0.9 % Sodium Chloride Flush 3 ML SYRINGE IVFLUSH ×3 (06:35→20:08)
--- NOTE | 2021-12-09 06:47 | PC.NURSE ---
patient c/o pain and SOB approx 0300, states she has been trying to force herself to cough up mucus plug, which possibly increased pain. Patient stated SOB was not new. RR was 20 and O2 was at 95%. Spoke in full sentences. chest tube patent. Respiratory therapist called and assessed patient. Patient soon fell asleep and appeared comfortable. This morning she ambulated and was found sitting at edge of bed rr 22, O2 91% room air, and nasal cannula was placed back on patient. Patient c/o anxiety, frustration and discomfort over inability to take deep breaths or clear lungs. chest tube drainage approx 10mL from 11p-7a
--- NOTE | 2021-12-09 10:07 | P.PNTS_ITS ---
Subjective Subjective Date of Service: 12/09/21 Interval history: Patient feeling better today in terms of pain, but has not been able to cough up any mucous as of yet. Has been ambulating in the hallways, using her IS (getting to 500-750), and flutter valve device. Patient states no one came to do chest PT on her yesterday. Denies any significant SOB at rest or PARHAM, but does occasionally get short episodes of SOB like she did overnight. Currently on room air. Denies any fever, chills, lightheadedness, dizziness, chest pain/pressure, abdominal pain/pressure, nausea, or vomiting. Physical Exam Vital Signs: Vital Signs: Last Vital Signs Temp 96.2 F L 12/09/21 08:00 Pulse 75 12/09/21 08:00 Resp 22 H 12/09/21 08:00 BP 143/90 H 12/09/21 08:00 Pulse Ox 96 12/09/21 08:00 O2 Del Method 12/09/21 08:00 O2 Flow Rate 3 12/09/21 06:35 Oxygen Flow Rate 2 12/07/21 14:01 BMI result Body Mass Index 20.7 General: No acute distress, resting comfortably in chair, well developed Head: Normocephalic, atraumatic, symmetric Eyes: Sclera anicteric, eyelids without edema or erythema, +EOMS intact ENT: Oral mucosa and tongue are moist without lesions or exudates Neck: Soft, supple, symmetric, trachea midline, no crepitus Cardiovascular: Regular rate and rhythm, no murmur/rubs/gallops, BUE and BLE without edema, no calf tenderness bilaterally Respiratory: Right lung CTA, Left lung with diminished BS throughout. Breathing nonlabored, speaking in full sentences, on room air. No use of accessory muscles. Multiple right sided chest incisions are C/D/I without erythema/drainage/open areas, no crepitus. Right chest tube x 1 to [facility] on waterseal, serous / light brown drainage, no air leak. Gastrointestinal: Soft, non-tender, non-distended, +normoactive bowel sounds. Skin: Warm and dry throughout, no rashes Neurological: Alert and oriented x 3, no focal neurological deficit noted Psychiatric: No agitation, appropriate affect Procedures Date of Service Date of Service: 12/09/21 Progress Note: A&P Assessment and plan (1) Recurrent spontaneous pneumothorax: Status: Acute Assessment and Plan: POD#3 s/p R VATS apical bleb resection and talc/mechanical pleurodesis. CXR today pending radiology read, however upon my inspection the left lung has worsened opacity with continued ipsilateral shift of the trachea suggesting worsening mucous plugging since yesterday. Chest tube management * CXR today shows no pneumothorax. * No air leak or crepitus. * Right chest tube removed without difficulty and an occlusive dressing was placed over the site. This dressing should remain in place, untouched, x 48 hours. May be removed and left open to air on 12/11/21. Pain management * Pain should improve now that chest tube has been removed. * Tylenol 650mg PO q6h ATC * Toradol 7.5mg PO ATC * Will continue current narcotic regimen as it seems to be working better for her which includes: Oxycodone 5mg PO q4h SCHEDULED, with 2.5mg-5mg q4h prn based on pain scale. * D/C Dilaudid IV Pulmonary toilet / L mucous plugging * Mucous plugging due to poor pulmonary toileting. * Needs to have pain controlled so can effectively participate. * IS * Flutter valve * Chest PT to be done TID on left chest. I called and personally spoke with the respiratory department about them coming to perform these maneuvers 3x today. * Mucinex. * If patient is unable to clear this on her own by tomorrow, or respiratory status declines, will need therapeutic bronchoscopy. Activity * Patient needs to be OOB ambulating in the hallways as much as possible, but at least 3-4 times per day. * Patient needs to be OOB to chair for all meals * Educated patient that sitting up 90' in bed is better than laying down, sitting up in chair is better than being in bed, and walking is better than all of that. Bowel regimen DVT prophylaxis * Heparin SQ. Patient refusing. * SCDs at all times when not ambulating. * Early ambulation. GI prophylaxis: Famotidine PO Case discussed with Dr. Ram. Time Spent With Patient Time: Total time spent is greater than 50% in coordination of care (as documented) at patient's floor/unit and/or counseling patient: Quality Stroke Does the patient have a stroke diagnosis?: No VTE Prior VTE?: No VTE Risk Level:: Surgical - low VTE Device Contraindication: N/A - Device Ordered VTE Drug Contraindication: N/A - Med Ordered
[2021-12-09] MEDS: Docusate Sodium 100 MG CAPSULE PO ×2 (10:51→20:08)
[2021-12-09] MEDS: guaiFENesin LA 600 MG TAB.ER.12H PO ×2 (10:51→20:07)
[2021-12-09] MEDS: Famotidine 20 MG TABLET PO (10:52)
[2021-12-09] MEDS: ondansetron HCL 4 MG/2 ML VIAL IVPUSH (12:06)
[2021-12-09] MEDS: Sennosides 8.6 MG TABLET 17.2 MG PO ×2 (20:07→21:08)
[2021-12-10] VITALS (13 sets, daily range): BP systolic 115–158; BP diastolic 64–87; PULSE 77–104; RESP 14–20; TEMP 36.3–37.4; O2SAT 94–98
[2021-12-10] MEDS: Acetaminophen 325 MG TABLET 650 MG PO ×4 (02:55→19:51)
[2021-12-10] MEDS: oxyCODONE HCl Immed Release 5 MG TABLET PO ×7 (02:55→21:46)
[2021-12-10] MEDS: Lidocaine 4 % Patch ADH..PATCH 1 PATCH TRANSDERMA (09:13)
[2021-12-10] MEDS: 0.9 % Sodium Chloride Flush 3 ML SYRINGE IVFLUSH ×3 (09:14→19:50)
[2021-12-10] MEDS: Docusate Sodium 100 MG CAPSULE PO ×2 (09:14→19:50)
[2021-12-10] MEDS: guaiFENesin LA 600 MG TAB.ER.12H PO ×2 (09:14→19:50)
[2021-12-10] MEDS: Famotidine 20 MG TABLET PO (09:14)
--- NOTE | 2021-12-10 09:45 | P.PNTS_ITS ---
Subjective Subjective Date of Service: 12/10/21 Interval history: Patient was seen and examined this morning OOB in chair. She did eat her breakfast at approximately 9 AM this morning. Her morning chest x-ray shows some improvement in left-sided opacification with midline shift to the left consistent with atelectasis likely due to mucous plugging. Respiratory therapy did begin aggressive pulmonary toilet with her yesterday however patient states she was only able to cough up 2 small collections of thin yellow mucus. She denies any fevers or chills states that she does have shortness of breath at rest which she states is secondary to her right-sided incisional pain. She states she still has not had a bowel movement as of today. She denies any abdominal pain or abdominal distention at this time. She does admit to some nausea which she attributes to her pain.Patient was informed we will be obtaining a consult from pulmonary and will likely need to have a bronchoscopy performed if she is unable to clear her own secretions. Physical Exam Vital Signs: Vital Signs: Last Vital Signs Temp 97.4 F 12/10/21 08:00 Pulse 86 12/10/21 08:00 Resp 20 12/10/21 08:00 BP 121/69 12/10/21 08:00 Pulse Ox 96 12/10/21 08:00 O2 Del Method 12/10/21 08:00 O2 Flow Rate 2 12/10/21 03:33 Oxygen Flow Rate 2 12/07/21 14:01 BMI result Body Mass Index 20.7 Const: General: alert, awake and Physically active; No acute distress Chest: Other: Right-sided chest wall has laparoscopic surgical incisions which are clean dry and intact with a dry occlusive dressing over previous chest tube site. No subcutaneous emphysema noted on physical exam. Resp: Other: Breath sounds are clear amongst right lung ross with diminished breath sounds appreciated in left lower lobe. Cardio: Jugular venous distension: no JVD Rate: regular rate Rhythm: regular rhythm Heart sounds: S1 normal heart sound present, S2 normal heart sound present, no gallops, no murmurs and no rubs GI: Inspection: Yes normal to inspection Palpation (GI): Soft to palpation and nontender Procedures Date of Service Date of Service: 12/10/21 Progress Note: A&P Assessment and plan (1) Recurrent spontaneous pneumothorax: Status: Acute Assessment and Plan: POD#4 s/p R VATS apical bleb resection and talc/mechanical pleurodesis. CXR today pending radiology read, however upon my inspection the left lung has shown some improvement with left opacity with continued ipsilateral shift of the trachea suggesting mucous plugging. * Right chest tube removed yesterday her dry occlusive dressing may be removed tomorrow on 12/11/21. Pain management * Pain should improve now that chest tube has been removed. * Tylenol 650mg PO q6h ATC * Toradol 7.5mg PO ATC * Transdermal lidocaine patches to affected area. * Will continue current narcotic regimen as it seems to be working better for her which includes: Oxycodone 5mg PO q4h SCHEDULED, with 2.5mg-5mg q4h prn based on pain scale. Pulmonary toilet / L mucous plugging * Mucous plugging due to poor pulmonary toileting. * Placing pulmonary consult to be evaluated for bronchoscopy. Left sided consolidation with ipsilateral shift of trachea likely mucous plugging. * Patient made n.p.o. except for medications until she can be evaluated by pulmonary (last meal was at 9 AM this morning) * Receiving pulmonary toilet from respiratory therapy with incentive spirometry, flutter valve device and chest percussion. * Needs to have pain controlled so can effectively participate. * IS * Flutter valve * Chest PT to be done TID on left chest.? * Mucinex. Activity * Patient needs to be OOB ambulating in the hallways as much as possible, but at least 3-4 times per day. * Patient needs to be OOB to chair for all meals * Educated patient that sitting up 90' in bed is better than laying down, sitting up in chair is better than being in bed, and walking is better than all of that. Bowel regimen DVT prophylaxis * Heparin SQ.? Patient refusing. * SCDs at all times when not ambulating. * Early ambulation. GI prophylaxis: Famotidine PO Time Spent With Patient Time: Total time spent is greater than 50% in coordination of care (as documented) at patient's floor/unit and/or counseling patient: Quality Stroke Does the patient have a stroke diagnosis?: No VTE Prior VTE?: No VTE Risk Level:: Surgical - low VTE Device Contraindication: N/A - Device Ordered VTE Drug Contraindication: N/A - Med Ordered
[2021-12-10] MEDS: Acetylcysteine 10 % 400 MG/4 ML VIAL INHALE ×3 (12:16→19:39)
--- NOTE | 2021-12-10 12:21 | MHC.CM.PN ---
PT NOT YET CLEARED TO DC DCP: HOME NO SERVICES PT TO ARRANGE TRANSPORT
--- NOTE | 2021-12-10 12:55 | PM.CNPUL ---
History of Present Illness History of Present Illness Consult date: 12/10/21 Reason for consult: hypoxemia and other (ATALECTASIS) Chief complaint: Bleb disease Narrative: I HAVE SEEN THIS 41 YEARS OLD FEMALE FOR PULMONARY CONSULTATION AND MANAGEMENT. REVIEWED THE HISTORY AND EXAMINED HER THOROUGHLY. She has history of recurrent pneumothorax on the right side. The 1st incidence was 2 years ago treated conservatively. Then she had recurrent pneumothorax on 11/06 21, treated with the a chest due for a few days, and discharged home. 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 [place]. Patient was brought in, for surgical resection and plication. She underwent to VATS assisted thoracostomy and resection of Bullie as well as pleurodesis, in right upper lobe. Chest due was removed yesterday, patient had increased cough with difficulty in expectorating, and slightly increased shortness of breath with hypoxemia. Chest x-ray showed atelectasis left lung, with shift of mediastinum to the left. This was considered due to mucus plugging, and inability to clear the mucus. Has been treated with the, chest percussion, flutter valve, and incentive spirometry. Chest x-ray today shows, decrease in the density, indicating partial clearance, but still has volume loss of the left lung. Pulmonary consultation requested for considering bronchoscopy and bronchial toileting. This patient has history of smoking throughout her adult life. She does not have documented history of chronic obstructive pulmonary disease. And has not been using any bronchodilators. Review of Systems Review of Systems: Yes all other systems are reviewed and are negative PMFSH Past Medical History Medical History (Updated 12/10/21 @ 13:08 by Roberta Koehler MD) Abnormal Pap smear of cervix Atelectasis of left lung History of renal calculi Mucus plugging of bronchi Spontaneous pneumothorax Surgical History Surgical History History of chest tube placement (~2018) History of chest tube placement (~2021) History of cystoscopy (~2019) History of lithotripsy (~2018) Social History Social History Household Members: Family Housing: House Are you a primary managed care manager to a significant other at home: No Do you presently have visiting nurse or other home services: No Alcohol intake: current Alcohol intake frequency: a few times a week Patient Tobacco Use Status: Current everyday Tobacco user Tobacco use type: Cigarette Cigarette Packs Per Day: 1 Cigarettes Per Day: 10 Years Smoked: 30 Second Hand Smoke Exposure: No Advance Directives Date on File: 11/14/21 service: No Current occupational status: employed Meds Allergies Allergy/AdvReac Type Severity Reaction Status Date / Time bee pollen [BEE STINGS] Allergy Severe ANAPHYLAXIS Verified 11/28/21 09:55 bees Allergy Severe anaphylaxis Uncoded 11/28/21 09:55 Active Medications: Current Medications Acetaminophen (Acetaminophen 325 Mg Tablet) 650 mg PO Q6H [facility] Last Admin: 12/10/21 09:14 Dose: 650 mg Acetylcysteine (Acetylcysteine 10 % 400 Mg/4 Ml Vial) 400 mg INHALE RQ4H WHILE AWAKE [facility] Last Admin: 12/10/21 12:16 Dose: 400 mg Docusate Sodium (Docusate Sodium 100 Mg Capsule) 100 mg PO BID [facility] Last Admin: 12/10/21 09:14 Dose: 100 mg Famotidine (Famotidine 20 Mg Tablet) 20 mg PO DAILY [facility] Last Admin: 12/10/21 09:14 Dose: 20 mg Guaifenesin (Guaifenesin La 600 Mg Tab.Er.12h) 600 mg PO BID [facility] Last Admin: 12/10/21 09:14 Dose: 600 mg Heparin Sodium (Porcine) (Heparin Sodium,Porcine 5,000 Unit/Ml Vial) 5,000 unit SUBCUT Q8H [facility] Last Admin: 12/10/21 06:42 Dose: Not Given Lidocaine (Lidocaine 4 % Patch Adh..Patch) 1 patch TRANSDERMA DAILY [facility] Last Admin: 12/10/21 09:13 Dose: 1 patch Naloxone HCl (Naloxone Hcl 0.4 Mg/Ml Vial) 0.04 mg IVPUSH Q5M PRN PRN Reason: Opiate Reversal Ondansetron HCl (Ondansetron Hcl 4 Mg/2 Ml Vial) 4 mg IVPUSH Q8H PRN PRN Reason: Nausea and Vomiting Last Admin: 12/09/21 12:06 Dose: 4 mg Oxycodone HCl (Oxycodone Hcl Immed Release 5 Mg Tablet) 5 mg PO Q4H [facility] Last Admin: 12/10/21 09:13 Dose: 5 mg Oxycodone HCl (Oxycodone Hcl Immed Release 5 Mg Tablet) 5 mg PO Q4H PRN PRN Reason: Pain, Severe (Pain Scale 7-10) Last Admin: 12/10/21 11:18 Dose: 5 mg Oxycodone HCl (Oxycodone Hcl Immed Release 5 Mg Tablet) 2.5 mg PO Q4H PRN PRN Reason: Pain, Moderate (Pain Scale 4-6 Senna (Sennosides 8.6 Mg Tablet) 17.2 mg PO BEDTIME [facility] Last Admin: 12/09/21 21:08 Dose: 17.2 mg Sodium Chloride (0.9 % Sodium Chloride Flush 3 Ml Syringe) 3 ml IVFLUSH QSHIFT [facility] Last Admin: 12/10/21 09:14 Dose: 3 ml Home Medications Medication Instructions Recorded Confirmed Last Taken Type No Known Home Meds 11/29/21 11/29/21 Unknown History Physical Exam Vital Signs: Vital Signs: Last Vital Signs Temp 97.8 F 12/10/21 11:34 Pulse 86 12/10/21 12:18 Resp 16 12/10/21 12:18 BP 135/68 12/10/21 11:34 Pulse Ox 94 12/10/21 11:34 O2 Del Method 12/10/21 11:34 O2 Flow Rate 2 12/10/21 11:34 Oxygen Flow Rate 2 12/07/21 14:01 BMI result Body Mass Index 20.7 Const: Other: She is of a thin build, sitting up in the chair,, on O2 1 L/minute at this time, feels comfortable and showing no acute distress. General: comfortable, no acute distress, alert and awake Orientation/consciousness: patient oriented x3 HEENT: Head: Yes normal to inspection General nose exam: No nasal polyps present and No nasal discharge present Face and sinus: Yes sinuses nontender Mouth: oropharynx normal Throat: Yes posterior oropharynx normal Eyes: General: appearance normal, both eyes and all related structures Neck: Neck: Yes normal visual inspection, Yes no lymphadenopathy, Yes trachea midline and Yes no JVD Thyroid: Thyroid normal Chest: Chest palpation & inspection: normal inspection of the chest, normal palpation of entire chest wall and no tenderness Resp: Other: Percussion note resonant on the right chest, There is dullness on percussion over the lower left chest. Breath sounds are good and normal on the right side. Breath sounds are definitely diminished over the left lung especially over the lower half. No wheezes or crepitations are heard. Cardio: Palpation: normal PMI Rate: regular rate Rhythm: regular rhythm Heart sounds: no gallops and no murmurs Peripheral pulses: Peripheral pulses 2+ throughout GI: Palpation (GI): Soft to palpation, nontender, No hepatosplenomegaly present and no masses Auscultation: normal bowel sounds Back/Spine/Pelvis: Thoracic/Lumbar Spine: thoracic and lumbar spine normal to inspection Skin: General skin exam: no rashes or lesions noted Neuro: General: patient oriented x3 and no focal motor deficits Cranial nerves: Yes CN's II-XII intact bilaterally Extrem: General: Yes normal to inspection, Yes no clubbing, cyanosis or edema and Yes no calf tenderness Psych: Appearance: grossly normal and well kempt Speech and movement: Normal speech and movement present Results Laboratory Findings CBC and BMP: 12/07/21 06:53 12/07/21 06:53 Abnormal lab findings: Abnormal Labs 12/07/21 06:53 WBC 15.8 H RBC 3.72 L Hct 36.8 L MCV 98.9 H Immature Gran % (Auto) 0.5 H Neut % (Auto) 76.7 H Lymph % (Auto) 14.3 L [place] # (Auto) 1.3 H Abs Immat Gran (auto) 0.08 H Absolute Neuts (auto) 12.1 H Diagnostic Findings Chest x-ray: report reviewed and image reviewed Assessment and Plan (1) Recurrent spontaneous pneumothorax: Status: Acute (2) Cigarette smoker: Status: Acute (3) Atelectasis of left lung: Status: Acute (4) Mucus plugging of bronchi: Status: Acute Plan This patient to has definite atelectasis of the left lung, which is partially improved since yesterday. This is most likely due to mucus plugging. of smoking and most likely she does have underlying chronic obstructive pulmonary disease. Status post resection of the bullous lesions in right apex and pleurodesis. Recc . I will add Mucomyst by nebulizer Q i.d.. Will also add albuterol solution to use in the nebulizer Q 4 hours p.r.n.. Respiratory therapy to continue the chest physiotherapy. Patient is instructed to keep on doing incentive spirometry for breathing exercises. Also continue to use flutter device q.2 hours while awake. Repeat chest x-ray tomorrow morning, in case there is no significant improvement then she would definitely need bronchoscopic examination for bronchial toileting. Explained to the patient in detail and she understands very well. Procedures Date of Service Date of Service: 12/10/21
[2021-12-10] MEDS: Albuterol Sulfate (0.083%) 2.5 MG/3 ML VIAL.NEB INHALE (16:22)
[2021-12-10] MEDS: Sennosides 8.6 MG TABLET 17.2 MG PO (19:50)
[2021-12-11] VITALS (20 sets, daily range): BP systolic 102–144; BP diastolic 53–84; PULSE 72–112; RESP 14–24; TEMP 36.3–36.9; O2SAT 92–100
[2021-12-11] MEDS: Acetaminophen 325 MG TABLET 650 MG PO ×4 (03:00→20:17)
[2021-12-11] MEDS: oxyCODONE HCl Immed Release 5 MG TABLET PO ×3 (03:01→10:00)
[2021-12-11] MEDS: Acetylcysteine 10 % 400 MG/4 ML VIAL INHALE ×4 (07:44→20:48)
[2021-12-11] MEDS: Albuterol Sulfate (0.083%) 2.5 MG/3 ML VIAL.NEB INHALE ×4 (07:44→20:48)
--- NOTE | 2021-12-11 09:00 | PM.PNPUL ---
Subjective Subjective Date of Service: 12/11/21 Principal diagnosis: Atalectasis Left lung Interval history: She is feeling much better. Has been coughing some phlegm. She is off oxygen. Does not have any distress. Chest x-ray she still shows complete atelectasis of the left lower lobe, with mediastinal shift to the left. Explained to the patient that even though she is feeling better it still, good idea to do bronchoscopy and bronchial lavage. Objective Data Labs CBC & Chem 7: 12/07/21 06:53 12/07/21 06:53 Review of Systems Review of Systems Yes all other systems are reviewed and are negative Physical Exam Vital Signs: Vital Signs: Last Vital Signs Temp 98.2 F 12/11/21 07:33 Pulse 84 12/11/21 08:10 Resp 16 12/11/21 08:10 BP 116/76 12/11/21 07:33 Pulse Ox 93 12/11/21 08:10 O2 Del Method 12/11/21 07:33 O2 Flow Rate 2 12/10/21 11:34 Oxygen Flow Rate 2 12/10/21 13:58 BMI result Body Mass Index 20.7 Const: Other: She is of a thin build, sitting up in the chair,, on O2 1 L/minute at this time, feels comfortable and showing no acute distress. General: comfortable, no acute distress, alert and awake Orientation/consciousness: patient oriented x3 HEENT: Head: Yes normal to inspection General nose exam: No nasal polyps present and No nasal discharge present Face and sinus: Yes sinuses nontender Mouth: oropharynx normal Throat: Yes posterior oropharynx normal Eyes: General: appearance normal, both eyes and all related structures Neck: Neck: Yes normal visual inspection, Yes no lymphadenopathy, Yes trachea midline and Yes no JVD Thyroid: Thyroid normal Chest: Chest palpation & inspection: normal inspection of the chest, normal palpation of entire chest wall and no tenderness Resp: Other: Percussion note resonant on the right chest, There is dullness on percussion over the lower left chest. Breath sounds are good and normal on the right side. Breath sounds are slightly improved in the left upper chest, but still absent over the left lower lobe area. Cardio: Palpation: normal PMI Rate: regular rate Rhythm: regular rhythm Heart sounds: no gallops and no murmurs Peripheral pulses: Peripheral pulses 2+ throughout GI: Palpation (GI): Soft to palpation, nontender, No hepatosplenomegaly present and no masses Auscultation: normal bowel sounds Back/Spine/Pelvis: Thoracic/Lumbar Spine: thoracic and lumbar spine normal to inspection Skin: General skin exam: no rashes or lesions noted Neuro: General: patient oriented x3 and no focal motor deficits Cranial nerves: Yes CN's II-XII intact bilaterally Extrem: General: Yes normal to inspection, Yes no clubbing, cyanosis or edema and Yes no calf tenderness Psych: Appearance: grossly normal and well kempt Speech and movement: Normal speech and movement present Procedures Date of Service Date of Service: 12/11/21 Assessment and Plan Assessment and plan (1) Recurrent spontaneous pneumothorax: Problem details: (Right PTX 01/2019 - Recurrent Right PTX 10/2021) Status: Acute (2) Atelectasis of left lung: Status: Acute (3) Mucus plugging of bronchi: Status: Acute Plan Clinically she is definitely improved. However chest x-ray still shows atelectasis of the left lower lobe with mediastinal shift. Recommendation : I think bronchoscopy and bronchial large would expedite her recovery. Explained to her and she is agreeable. I have requested Dr. Jed Gonzalez to perform the procedure. Time Spent With Patient Time: Total time spent is greater than 50% in coordination of care (as documented) at patient's floor/unit and/or counseling patient: Progress Note: Quality Stroke Does the patient have a stroke diagnosis?: No
[2021-12-11 09:15] LABS: MANUAL DIFF FLAG NO
[2021-12-11 09:29] LABS: Basophils Percent Auto 0.2 % (0-2); Eosinophils Absolute Auto 0.3 X10*3/uL (0.0-0.4); Eosinophils Percent Auto 3.3 % (0-4); Hematocrit 37.7 % (37.0-47.0); Hemoglobin 12.8 g/dl (12.0-16.0); Imm Gran Abs Auto 0.03 X10*3/uL (0.00-0.03); Imm Gran Pct Auto 0.3 % (0.0-0.4); Lymphocytes Absolute Auto 1.9 X10*3/uL (1.2-4.9); Lymphocytes Percent Auto 20.4 % (20-40); Mean Corpuscular Hemoglobin 32.9 pg (27.0-33.0); Mean Corpuscular Volume 96.9 fL (80.0-98.0); Mean Platelet Volume 10.9 fL (9.4-12.3); Monocytes Percent Auto 11.1 % (2-11); Neutrophils Absolute Auto 5.9 x10*3/uL (2.0-8.3); Neutrophils Percent Auto 64.7 % (45-73); Platelet Count 406 X10*3/uL (160-400); Red Blood Count 3.89 X10*6/uL (4.20-5.50); Red Cell Distribution Width 13.1 % (11.0-16.0); White Blood Count 9.2 X10*3/uL (4.8-10.8)
--- NOTE | 2021-12-11 09:36 | MHC.SHP ---
Pre-Procedural Eval Section A Date of Service: 12/11/21 The patient is an INPATIENT: Yes The History & Physical has been completed within 30 days and I have reviewed it.: Yes Section B Chief Complaint: Bleb disease Allergies: Allergies Allergy/AdvReac Type Severity Reaction Status Date / Time bee pollen [BEE STINGS] Allergy Severe ANAPHYLAXIS Verified 11/28/21 09:55 bees Allergy Severe anaphylaxis Uncoded 11/28/21 09:55 Plan Diagnosis/Plan: Unchanged I have reviewed the history and physical and performed a pertinent physical examination on my patient. No changes have occurred unless specified.
[2021-12-11] MEDS: Famotidine 20 MG TABLET PO (09:45)
[2021-12-11] MEDS: guaiFENesin LA 600 MG TAB.ER.12H PO ×2 (09:45→20:18)
[2021-12-11] MEDS: Docusate Sodium 100 MG CAPSULE PO ×2 (09:51→20:18)
[2021-12-11] MEDS: 0.9 % Sodium Chloride Flush 3 ML SYRINGE IVFLUSH ×3 (09:51→20:21)
[2021-12-11] MEDS: Lidocaine 4 % Patch ADH..PATCH 1 PATCH TRANSDERMA (09:59)
--- NOTE | 2021-12-11 13:06 | HO.ANESPROP2 ---
HPI - Anesthesia Eval Consult details Narrative: 41 yo female patient for fiberoptic bronchoscopy [facility] Active Problems Active Problems: All Active Problems (Updated 12/10/21 @ 13:08 by Roberta Koehler MD) Mucus plugging of bronchi (Acute) Atelectasis of left lung (Acute) Recurrent spontaneous pneumothorax (Acute) Cigarette smoker (Acute) Past Medical History Medical History (Updated 12/10/21 @ 13:08 by Roberta Koehler MD) Abnormal Pap smear of cervix Atelectasis of left lung History of renal calculi Mucus plugging of bronchi Spontaneous pneumothorax Family History Family history of problems with anesthesia: No Surgical History Surgical History History of chest tube placement (~2018) History of chest tube placement (~2021) History of cystoscopy (~2019) History of lithotripsy (~2018) History of Problems with Anesthesia: No Social History Social History Household Members: Family Housing: House Are you a primary animal caretaker to a significant other at home: No Do you presently have visiting nurse or other home services: No Alcohol intake: current Alcohol intake frequency: a few times a week Patient Tobacco Use Status: Current everyday Tobacco user Tobacco use type: Cigarette Cigarette Packs Per Day: 1 Cigarettes Per Day: 10 Years Smoked: 30 Second Hand Smoke Exposure: No Advance Directives Date on File: 11/14/21 service: No Current occupational status: employed Meds Allergies Allergy/AdvReac Type Severity Reaction Status Date / Time bee pollen [BEE STINGS] Allergy Severe ANAPHYLAXIS Verified 11/28/21 09:55 bees Allergy Severe anaphylaxis Uncoded 11/28/21 09:55 Active Medications: Current Medications Acetaminophen (Acetaminophen 325 Mg Tablet) 650 mg PO Q6H NILDA Last Admin: 12/11/21 09:45 Dose: 650 mg Acetylcysteine (Acetylcysteine 10 % 400 Mg/4 Ml Vial) 400 mg INHALE RQ4H WHILE AWAKE NILDA Last Admin: 12/11/21 11:43 Dose: 400 mg Albuterol Sulfate (Albuterol Sulfate (0.083%) 2.5 Mg/3 Ml Vial.Neb) 2.5 mg INHALE Q4H PRN PRN Reason: ATLECTASIS, COUGH Last Admin: 12/11/21 11:43 Dose: 2.5 mg Docusate Sodium (Docusate Sodium 100 Mg Capsule) 100 mg PO BID [facility] Last Admin: 12/11/21 09:51 Dose: 100 mg Famotidine (Famotidine 20 Mg Tablet) 20 mg PO DAILY [facility] Last Admin: 12/11/21 09:45 Dose: 20 mg Guaifenesin (Guaifenesin La 600 Mg Tab.Er.12h) 600 mg PO BID [facility] Last Admin: 12/11/21 09:45 Dose: 600 mg Heparin Sodium (Porcine) (Heparin Sodium,Porcine 5,000 Unit/Ml Vial) 5,000 unit SUBCUT Q8H [facility] Last Admin: 12/11/21 06:19 Dose: Not Given Lidocaine (Lidocaine 4 % Patch Adh..Patch) 1 patch TRANSDERMA DAILY [facility] Last Admin: 12/11/21 09:59 Dose: 1 patch Naloxone HCl (Naloxone Hcl 0.4 Mg/Ml Vial) 0.04 mg IVPUSH Q5M PRN PRN Reason: Opiate Reversal Ondansetron HCl (Ondansetron Hcl 4 Mg/2 Ml Vial) 4 mg IVPUSH Q8H PRN PRN Reason: Nausea and Vomiting Last Admin: 12/09/21 12:06 Dose: 4 mg Oxycodone HCl (Oxycodone Hcl Immed Release 5 Mg Tablet) 5 mg PO Q4H [facility] Last Admin: 12/11/21 10:00 Dose: 5 mg Oxycodone HCl (Oxycodone Hcl Immed Release 5 Mg Tablet) 5 mg PO Q4H PRN PRN Reason: Pain, Severe (Pain Scale 7-10) Last Admin: 12/10/21 11:18 Dose: 5 mg Oxycodone HCl (Oxycodone Hcl Immed Release 5 Mg Tablet) 2.5 mg PO Q4H PRN PRN Reason: Pain, Moderate (Pain Scale 4-6 Senna (Sennosides 8.6 Mg Tablet) 17.2 mg PO BEDTIME [facility] Last Admin: 12/10/21 19:50 Dose: 17.2 mg Sodium Chloride (0.9 % Sodium Chloride Flush 3 Ml Syringe) 3 ml IVFLUSH QSHIFT [facility] Last Admin: 12/11/21 09:51 Dose: 3 ml Home Medications Medication Instructions Recorded Confirmed Last Taken Type No Known Home Meds 11/29/21 11/29/21 Unknown History Exam Exam Date and Time: December 11, 2021 1306 Height,Weight and Vital Signs: Height 5 ft 5 in Weight 56.699 kg Last Vital Signs Temp 97.9 F 12/11/21 12:56 Pulse 87 12/11/21 12:56 Resp 22 H 12/11/21 12:56 BP 128/62 12/11/21 12:56 Pulse Ox 92 12/11/21 12:56 O2 Del Method 12/11/21 12:56 O2 Flow Rate 2 12/10/21 11:34 Oxygen Flow Rate 2 12/10/21 13:58 Pertinent Lab Results Pertinent Lab Results: Laboratory Tests 11/29/21 12/06/21 12/06/21 12:35 10:50 10:50 WBC RBC Hgb Hct MCV MCH MCHC RDW Plt Count MPV Immature Gran % (Auto) Neut % (Auto) Lymph % (Auto) [place] % (Auto) Eos % (Auto) Baso % (Auto) Lymph # (Auto) [place] # (Auto) Eos # (Auto) Baso # (Auto) Abs Immat Gran (auto) Absolute Neuts (auto) Absolute Nucleated RBC Nucleated RBC % (auto) Sodium Potassium Chloride Carbon Dioxide Anion Gap BUN Creatinine Estim Creat Clear Calc Estimated GFR Random Glucose Calcium Urine Test NEGATIVE COVID-19 ([facility]) Negative COVID-19 Clin Com See Note Blood Type A Positive Antibody Screen NEGATIVE 12/07/21 12/07/21 12/11/21 06:53 06:53 08:41 WBC 15.8 H 9.2 RBC 3.72 L 3.89 L Hgb 12.1 12.8 Hct 36.8 L 37.7 MCV 98.9 H 96.9 MCH 32.5 32.9 MCHC 32.9 34.0 RDW 13.6 13.1 Plt Count 323 D 406 H D MPV 11.1 10.9 Immature Gran % (Auto) 0.5 H 0.3 Neut % (Auto) 76.7 H 64.7 Lymph % (Auto) 14.3 L 20.4 [place] % (Auto) 8.2 11.1 H Eos % (Auto) 0.1 3.3 Baso % (Auto) 0.2 0.2 Lymph # (Auto) 2.3 1.9 [place] # (Auto) 1.3 H 1.0 Eos # (Auto) 0.0 0.3 Baso # (Auto) 0.0 0.0 Abs Immat Gran (auto) 0.08 H 0.03 Absolute Neuts (auto) 12.1 H 5.9 Absolute Nucleated RBC 0.000 0.000 Nucleated RBC % (auto) 0.0 0.0 Sodium 137 Potassium 4.3 Chloride 103 Carbon Dioxide 25 Anion Gap 13 BUN 15 Creatinine 0.76 Estim Creat Clear Calc 87.1 Estimated GFR > 60 Random Glucose 106 Calcium 8.5 Urine Test COVID-19 ([facility]) COVID-19 Clin Com Blood Type Antibody Screen Airway Mallampati Class: II TM Dist: >3cm Neck ROM: Full Loose/Missing/Broken Teeth: No (Patient denies) Heart: RRR Lungs: Decreased BS left. CTA Right Assessment and Plan Assessment Anesthesia Assessment: Anesthesia Plan Discussed and Chart Reviewed Final Anesthetic Review Family History of Problems with Anesthesia: No History of Problems with Anesthesia: No NPO: Yes ASA Class: II Final Preanesthetic Review: No Changes in Pt Med Stat, Meds/Allgs Chart Reviewed, Consent Obtained/Reviewed and Anes Risks/Benef Reviewed Patient Risk: Intermediate Procedure Risk: Low Assessment/Block/Sedation in SS: Assess/Block/Sedation-SS Anesthetic Plan Anesthetic Plan: GA Disposition: Standard PACU and Inp. Admit - Standard Bed
--- NOTE | 2021-12-11 13:59 | P.BOP_ITS ---
Brief Operative Note Date of Service: 12/11/21 Pre-op diagnosis: Mucus plugging/atelectasis Post-op diagnosis: same Procedure: Flexible bronchoscope advanced through the LMA with 2 cc of 2% lidocaine sprayed on vocal cords and moises. Bronchoscope advanced through the tracheobronchial tree. Right-sided evaluation showed normal bronchial mucosa with no mucus plugging. On the left side copious mucus suctioned out starting from left main stem bronchus down to segmental bronchi with normal bronchial mucosa underneath. Left-sided for kolb sent for microbiologic testing. Patient tolerated the procedure well and was returned to PACU in stable condition. Surgeon: Jed Gonzalez MD Anesthesia: GLMA Was an Die Engraving Supervisor used for this Procedure?: No Estimated blood loss (mL): 0 Condition: stable Disposition: PACU
[2021-12-11] MEDS: Sennosides 8.6 MG TABLET 17.2 MG PO (20:18)
[2021-12-12 03:22] VITALS: BP 172/63; PULSE 73; RESP 18; TEMP 36.2; O2SAT 94
[2021-12-12] MEDS: oxyCODONE HCl Immed Release 5 MG TABLET 10 MG PO (06:39)
[2021-12-12 07:39] VITALS: BP 136/77; PULSE 83; RESP 16; TEMP 36.1; O2SAT 96
[2021-12-12] MEDS: Albuterol Sulfate (0.083%) 2.5 MG/3 ML VIAL.NEB INHALE (07:48)
[2021-12-12] MEDS: Acetylcysteine 10 % 400 MG/4 ML VIAL INHALE (07:48)
[2021-12-12 07:49] VITALS: PULSE 84; O2SAT 97
[2021-12-12 08:34] VITALS: PULSE 94; RESP 16; O2SAT 97
--- NOTE | 2021-12-12 08:53 | P.EN_ITS ---
Event Note Date of Service: 12/12/21
--- NOTE | 2021-12-12 08:53 | PM.EVENT ---
Event Note Date of Service: 12/12/21
[2021-12-12] MEDS: 0.9 % Sodium Chloride Flush 3 ML SYRINGE IVFLUSH (09:05)
[2021-12-12] MEDS: Lidocaine 4 % Patch ADH..PATCH 1 PATCH TRANSDERMA (09:06)
[2021-12-12] MEDS: guaiFENesin LA 600 MG TAB.ER.12H PO (09:06)
[2021-12-12] MEDS: Acetaminophen 325 MG TABLET 650 MG PO (09:06)
[2021-12-12] MEDS: Famotidine 20 MG TABLET PO (09:07)
[2021-12-12] MEDS: Docusate Sodium 100 MG CAPSULE PO (09:07)
--- NOTE | 2021-12-12 10:52 | MHC.CM.PN ---
Patient has not yet been medically cleared for dc (Atelectasis (L) Lung, BRONCH with Bronchial Lavage yesterday); Home is the goal and CM will continue to follow.
[2021-12-12 11:40] VITALS: BP 140/68; PULSE 80; RESP 18; TEMP 36.9; O2SAT 97
--- NOTE | 2021-12-12 12:24 | PM.DS ---
DS: Providers Provider Date of Service: 12/12/21 Date of admission: 12/06/21 14:15 Date of discharge: 12/12/21 Primary care physician: Ginette Phillips DO Consults: 12/10/21 09:30 Consult to Pulmonology Routine Consulting Provider: Roberta Koehler Reason for consultation: Left consolidation/atalectasis compatible with musus plug ? bronchoscopy 12/10/21 10:26 Consult to Pulmonology Routine Consulting Provider: [facility] Reason for consultation: mUCOUS PLUGGING Has provider been notified: Yes Attending physician on discharge: Mini Ram DS: Diagnosis Discharge Diagnosis (1) Recurrent spontaneous pneumothorax: Status: Acute (2) Atelectasis of left lung: Status: Acute (3) Mucus plugging of bronchi: Status: Acute DS: Summary Hospital Course Hospital Course: On 12/06/2021 patient underwent a right VATS bleb resection and pleurodesis with bronchoscopy and aspiration for a recurrent right-sided spontaneous pneumothorax. Concluding the operation a 28 Iraqi chest tube was placed, patient tolerated the procedure well and was brought to PACU in stable condition. She continued to do well in PACU and was transferred to [facility] [place] on telemetry for further care and observation. On POD #1 her right-sided chest tube had remained on -20 low wall suction overnight with no detectable air leak and minimal serosanguineous fluid output. She had any concerning symptoms such as fevers, chills, increased shortness of breath or hemoptysis and her morning chest x-ray showed lungs well expanded with a trace right apical pneumothorax. She began voiding spontaneously and without difficulty and her right-sided chest tube remained in place on -20 low wall suction throughout the day. Patient did have some incisional pain issues which required her to be on oxycodone 5 mg tablets on a schedule with another 5 mg as needed order. Due to her pain she was reluctant to use incentive spirometry or ambulate frequently in hallway. On POD #2 she noted that she had difficulty taking deep breaths due to her pain and only achieved 500 cc when using I-S. Her morning chest x-ray revealed that the left lung had begun to oh pacify with ipsilateral tracheal deviation likely caused by mucous plugging. The right lung remains clear with a possible very small apical pneumothorax and no pleural effusion. Respiratory therapy begun chest physiotherapy 3 times daily along with flutter valve device and incentive spirometry for airway clearance. She was also placed on Mucinex at this time. On POD #3 her chest x-ray continued to have worsening left-sided opacification. Her chest tube was removed after remaining on waterseal overnight with minimal serosanguineous fluid output and no detectable air leak. A dry occlusive dressing was put in its place. Respiratory therapy continue to perform chest physiotherapy throughout the day and patient continued to have no productivity moving any mucus. On POD #4 her morning chest x-ray showed some improvement in left-sided opacification with continued midline shift to the left consistent with atelectasis likely due to mucous plugging. She was able to bring up small amounts of thick yellow sputum and continues to deny any fevers, chills however did complain of some increased shortness of breath. Her right-sided incisional pain continue to be an issue and patient reported no bowel movement as of yet. A pulmonary consult was performed, patient was placed on nebs and Mucomyst with continued airway clearance and plans for morning chest x-ray and bronchoscopy if patient did not improve. On POD #5 her morning chest x-ray continues to show persistent left-sided opacification consistent with mucous plugging, a bronchoscopy was performed by pulmonary . On POD #6 patient stated that she felt greatly improved in terms of her breathing which she states she no longer has any shortness of breath, continues to have an intermittent cough productive of thin yellow mucus, continue to ambulate spontaneously and without difficulty and now achieving 1500 with incentive spirometry. Her CBC showed no leukocytosis, she remained afebrile and her chest x-ray was largely clear with no acute acute process aside from some patchy atelectasis in the left lower lobe. Her bronchial washings gram stain did show some +1 gram-positive cocci and +1 gram-positive rods with cultures pending however due to patient's lack of symptoms, afebrile and clear chest x-ray with no leukocytosis the gram-positive cocci and rods are likely oropharyngeal contaminant from her bronchoscopy and was discharged home to self-care with no indication for antibiotics after her chest tube dressing was removed with all incisions showing no signs of infection. Prior to discharge patient also had 2 large bowel movements and stated states she felt great. Patient was instructed to return to the thoracic surgical department on December 21 at 8:45 AM for her postop appointment with Dr. Ram at the [place] thoracic surgical department. Review of systems: Remaining 10 point review of systems negative upon discharge. Physical Exam: General: Awake, alert and oriented x 3, Head : normocephalic with no signs of trauma. Eyes: PERRL, extra ocular movements intact. Ears: Normal shape and symmetry with no signs of trauma. Nose: Neg for epistaxis and non traumatic Throat: Trachea midline with no subcutaneous air present. Cardiac: RRR with normal S1 S2 and no rubs murmurs or gallops Thoracic: No subcutaneous air appreciated along anterior, lateral or posterior chest wall. Respiratory: Breath sounds clear with equal chest rise, no adventitious sounds such as wheezes or rhonchi. GI: abdomen non distended, soft and non-tender, Musculoskeletal: neg muscle weakness, or peripheral edema . Lymphatic: Neg cervical or clavicular lymphadenopathy. Status at Discharge Cognitive/behavioral status at discharge: Alert and oriented x3 with normal affect Time Spent with Patient Time attestation: Total time spent providing and/or coordinating discharge services: Discharge coordination time: Greater than 30 minutes Quality: Safe Use of Opioids Does Pt have an Active Cancer Diagnosis on the Problem List?: No Quality: Stroke Does the patient have a stroke diagnosis?: No Physical Exam Vital Signs: Vital Signs: Last Vital Signs Temp 98.5 F 12/12/21 11:40 Pulse 80 12/12/21 11:40 Resp 18 12/12/21 11:40 BP 140/68 H 12/12/21 11:40 Pulse Ox 97 12/12/21 11:40 O2 Del Method 12/12/21 11:40 O2 Flow Rate 2 12/11/21 14:42 Oxygen Flow Rate 2 12/10/21 13:58 BMI result Body Mass Index 20.7 DS: Data Data Completed and Pending Completed studies during hospitalization [Text1]: Pending at discharge 12/06/21 14:16 Surgical [PTH] Routine Procedures Drainage of Right Pleural Cavity with Drainage Device, Percutaneous Approach (11/08/21) Labs on day of discharge: Preliminary micro results at discharge 12/11/21 Unknown Routine Culture - Preliminary Bronchial Washings Culture in progress. Discharge Plan Discharge Patient Disposition: Home, Self-Care Discharge Diagnosis: Recurrent spontaneous pneumothorax. Referrals: Physician,None [Physician] - 1 Week Discharge Medications: New sennosides [Senna Lax] 8.6 mg Tablet 17.2 mg PO BEDTIME Qty: 28 0RF acetaminophen 325 mg Tablet 650 mg PO Q6H Qty: 50 0RF docusate sodium 100 mg Capsule 100 mg PO BID Qty: 28 0RF bisacodyl 5 mg Tablet,Delayed Release (Dr/Ec) 5 mg PO DAILY PRN (Reason: Constipation) Qty: 28 0RF oxycodone 5 mg Tablet 5 mg PO Q4H PRN (Reason: Pain, Moderate) Qty: 40 0RF Rx Instructions: You may take 2 tablets every 4 hrs as needed for severe pain. Partial Fill upon patient request. Discharge Orders: Discharge Order (Routine); Ordered 12/12/21 Ordered By: Diego Lacy Diet: Advance to usual diet Activity on Discharge: No heavy lifting Stand Alone Forms: Patient Portal Discharge page Activity Restrictions/Additional Instructions: MEDICATION: - Take all medications as directed. - No driving when taking narcotic pain medication. - You should be taking a stool softener when taking narcotic pain medications in order to prevent severe constipation. -You should take Tylenol 650 mg every 6 hours for incisional pain. You are being sent home with oxycodone 5 mg tablets which you can take every 4 hours as needed for incisional pain. You may take up to 2 tablets every 4 hours as needed for incisional pain. This is a narcotic medication you must not drive while on this medication and you should take stool softeners while taking this medication. WATCH FOR: - Monitor all incisions for increased redness, swelling, open areas, or drainage. - Monitor for increased air under the skin around the incisions or chest (feels like Rice Krispy cereal when touched). - Monitor for fever, chills, shortness of breath, chest pain, severe abdominal pain, persistent nausea/vomiting, severe changes in bowel or bladder habits. SMOKING CESSATION: - Smoking is hazardous to your health and those around you. - Continuing to smoke or use tobacco products can increase your chance of postoperative complications, including delayed wound healing, wound infection, stroke, and heart attack. - If you currently use tobacco products (cigarettes, dip, cigars, electronic/vapor cigarettes, etc) talk with your provider about options that are available to help you quit. - You can call the [facility] Smokers' Helpline at 7-675-QUIT NOW ( ). For Latvian, call 6-148-7-JACKELINEDYLANTHUAN ( ). You can also visit the website at www.[employer] [place].H[employer]lyNerd. FOLLOWUP: - You have an appointment with Dr Ram at the [place] [facility] office on 12/21/2021 @ 8:45 am for a followup. [facility], 1st floor - Call the thoracic surgery office @ [phone] if you have any questions or concerns. *[place] thoracic office: [phone]. -Arrive 30 minutes prior to your appointment to have a chest xray done at [facility] (1st floor, [facility]). Go to Patient Registration to check in for the xray. . Care Plan Goals: To return to prior funtion Health Concerns: None Plan of Treatment: To F/U at Thoracic surgical office in 2 weeks with a chest xray Assessment: Patient is doing quite well and is ready for discharge.
--- NOTE | 2021-12-12 13:18 | MHC.CM.PN ---
Patient has now been medically cleared for dc to home today, self care.
--- NOTE | 2021-12-12 14:36 | HO.POSTANES ---
Post Anesthesia Evaluation Post Anesthesia Evaluation Vital Signs: Vital Signs Temp Pulse Resp BP Pulse Ox O2 Del Method 12/12/21 11:40 98.5 F 80 18 140/68 H 97 Room Air 12/12/21 08:34 94 16 97 12/12/21 07:49 84 12/12/21 07:39 97.0 F 83 16 136/77 96 Room Air 12/12/21 03:22 97.2 F 73 18 172/63 H 94 Room Air Anesthesia: General Mental Status: Awake Pain Control: Satisfactory Nausea/Vomiting: None Hydration: Adequate Anesthesia-Related Issues: No Anes. Related Issues
== END 2021-12-12 15:29 | disposition home or self-care (01) | DRG 121 ==
LOC: HO.SSSA 14:31 → HO.IMC 15:50
PROVIDERS: Internal Medicine Pulmonary Disease; Nurse Practitioner; Physician Assistant; Admitting Provider Surgery; PCP Student in an Organized Health Care Education/Training Program; Visit Provider Surgery
PROC: 0B5P4ZZ Destruction of Left Pleura, Percutaneous Endoscopic Approach (ICD-10-PCS; principal; 2021-12-06 12:00)
PROC: 0BJ08ZZ Inspection of Tracheobronchial Tree, Via Natural or Artificial Opening Endoscopic (ICD-10-PCS; CPT 31622; principal; 2021-12-11 13:30)
DX: J93.83 Other pneumothorax (principal); T17.890A Other foreign object in other parts of respiratory tract causing asphyxiation, initial encounter; F17.210 Nicotine dependence, cigarettes, uncomplicated; J98.11 Atelectasis; J43.9 Emphysema, unspecified; Z87.442 Personal history of urinary calculi; Z71.6 Tobacco abuse counseling; X58.XXXA Exposure to other specified factors, initial encounter; Z20.822 Contact with and (suspected) exposure to COVID-19; Z91.030 Bee allergy status; Z79.899 Other long term (current) drug therapy
CPT/HCPCS: 36415; 71045; 71046; 80048; 81025; 85025; 86850; 86900; 86901; 87071; 87102; 87116; 87185; 87205; 87635; 88307; 94664; J0131; J0171; J0690; J1040; J1100; J1170; J1885; J2250; J2405; J2795; J3010

== ENCOUNTER 2022-05-10 08:17 | Outpatient (REF) | payer OTHER, SELFPAY ==
[2022-05-10 11:12] LABS: MANUAL DIFF FLAG NO
[2022-05-10 11:19] LABS: Basophils Absolute Auto 0.1 X10*3/uL (0.0-0.2); Basophils Percent Auto 0.6 % (0-2); Eosinophils Absolute Auto 0.3 X10*3/uL (0.0-0.4); Eosinophils Percent Auto 3.6 % (0-4); Hematocrit 44.2 % (37.0-47.0); Hemoglobin 14.6 g/dl (12.0-16.0); Imm Gran Abs Auto 0.03 X10*3/uL (0.00-0.03); Imm Gran Pct Auto 0.4 % (0.0-0.4); Lymphocytes Percent Auto 23.2 % (20-40); Mean Corpuscular Hemoglobin 31.3 pg (27.0-33.0); Mean Corpuscular Volume 94.6 fL (80.0-98.0); Mean Platelet Volume 11.4 fL (9.4-12.3); Monocytes Absolute Auto 0.8 X10*3/uL (0.1-1.2); Neutrophils Absolute Auto 5.2 x10*3/uL (2.0-8.3); Neutrophils Percent Auto 62.2 % (45-73); Platelet Count 356 X10*3/uL (160-400); Red Blood Count 4.67 X10*6/uL (4.20-5.50); Red Cell Distribution Width 12.9 % (11.0-16.0); White Blood Count 8.4 X10*3/uL (4.8-10.8)
[2022-05-10 11:56] LABS: Alanine Aminotransferase 8 U/L (0-31); Albumin Level 4.2 g/dL (3.5-5.0); Alkaline Phosphatase 63 U/L (39-117); Anion Gap 10 (12-20); Aspartate Amino Transferase 16 U/L (5-31); Bilirubin Total 0.5 mg/dL (0.0-1.0); Blood Urea Nitrogen 15 mg/dL (9-16); Calcium 9.5 mg/dL (8.4-10.2); Carbon Dioxide 26 mmol/L (22-29); Chloride 105 mmol/L (96-108); Cholesterol 176 mg/dL; Estimated Glomerular Filt Rate > 60; Glucose Fasting 86 mg/dL (60-99); HDL Cholesterol 56 mg/dL; Iron 89 mcg/dL (30-160); LDL Cholesterol Calculated 109 mg/dl; Percent Iron Saturation 26 % (15-50); Potassium 5.1 mmol/L (3.3-5.1); Sodium 136 mmol/L (135-145); Total Iron Binding Capacity 343 mcg/dL (228-428); Triglycerides 57 mg/dL; Unsaturated Iron Binding 254 ug/dL
[2022-05-10 12:38] LABS: Folate 3.8 ng/mL (> or = 4.0); Vitamin B12 461 pg/mL (200-900)
[2022-05-10 14:02] LABS: Vitamin D 25-OH Total 18.9 ng/mL (>30)
== END 2022-05-10 08:18 | disposition home or self-care (01) ==
LOC: HO.HMGCLDS 08:17
PROVIDERS: PCP Internal Medicine; Visit Provider Internal Medicine
DX: Z00.00 Encounter for general adult medical examination without abnormal findings (principal); L65.9 Nonscarring hair loss, unspecified
CPT/HCPCS: 36415; 80053; 80061; 82306; 82607; 82746; 83540; 85025

== ENCOUNTER 2022-05-22 14:56 | Outpatient (REF) | payer OTHER, SELFPAY ==
--- NOTE | ~2022-05-22 | MM_ITS ---
EXAMINATION: MM SCREENING DIGITAL BREAST TOMOSYNTHESIS, BILATERAL CLINICAL INFORMATION: Screening. Asymptomatic. The lifetime risk of breast cancer based on the Tyrer-Cuzick Model is 9%. COMPARISON: Mammography: Mammography of December 25, 2020 and ultrasound of January 17, 2021 TECHNIQUE: Digital breast tomosynthesis is performed in both the craniocaudal and mediolateral oblique views along with computer-aided detection (CAD). Synthesized 2D images are generated from the tomosynthesis. FINDINGS: The breasts are heterogeneously dense, which may obscure small masses (ACR BI-RADS breast composition Category c). There are no significant masses, abnormal calcifications, or other abnormalities. There are some scattered circumscribed densities seen bilaterally most likely representing cysts as had been seen on prior ultrasound study. MM/MM tomosynthesis screening BI IMPRESSION: No significant changes from prior exam. ASSESSMENT: BI-RADS 2: Benign RECOMMENDATION: Routine annual mammography screening. This patient's information was entered into a reminder system with a target due date for their next mammogram.
== END 2022-05-22 14:57 | disposition home or self-care (01) ==
LOC: HO.MAMMO 14:56
PROVIDERS: PCP Internal Medicine; Visit Provider Internal Medicine
DX: Z12.31 Encounter for screening mammogram for malignant neoplasm of breast (principal)
CPT/HCPCS: 77063; 77067

== ENCOUNTER 2022-08-28 14:56 | Outpatient (REF) | payer OTHER, SELFPAY ==
[2022-08-29 03:42] LABS: CT PCR NOT DETECTED (Not Detect.); NG PCR NOT DETECTED (Not Detect.)
[2022-08-29 11:08] LABS: BV Int Neg Control Negative (Negative); BV Int Pos Control Positive (Positive)
[2022-08-31 03:09] LABS: HPV mRNA E6/E7 rflx Not Detected (Not Detected)
== END 2022-08-28 14:57 | disposition home or self-care (01) ==
LOC: HO.LNP 14:56
PROVIDERS: PCP Internal Medicine; Visit Provider Advanced Practice Midwife
DX: Z01.419 Encounter for gynecological examination (general) (routine) without abnormal findings (principal); Z11.51 Encounter for screening for human papillomavirus (HPV); L65.9 Nonscarring hair loss, unspecified; R87.619 Unspecified abnormal cytological findings in specimens from cervix uteri; N93.9 Abnormal uterine and vaginal bleeding, unspecified; F17.210 Nicotine dependence, cigarettes, uncomplicated
CPT/HCPCS: 0353U; 87480; 87510; 87624; 87660; 88142

== ENCOUNTER 2022-09-05 10:33 | Outpatient (REF) | payer OTHER, SELFPAY ==
--- NOTE | ~2022-09-05 | US_ITS ---
EXAMINATION: US PELVIS CLINICAL INFORMATION: Pelvic pain. 42-year-old. LMP is unknown COMPARISON: None available. TECHNIQUE: Ultrasound of the pelvis is performed using both transabdominal and transvaginal transducers along with Doppler. Transvaginal imaging is performed due to inadequate visualization transabdominally. FINDINGS: Uterus: The uterus is anteverted and measures 8.0 x 4.1 x 4.8 cm. The double wall endometrial thickness is 6 mm. The uterus is smooth in contour and has normal myometrial echogenicity. No visible fibroid. Adnexa: Both ovaries are visualized. There is normal color flow to the adnexa. There is no ovarian torsion. There is no pelvic ascites or fluid collection. Right ovary measures 3.2 x 1.2 x 2.2 cm. (4 Left ovary measures 3.4 x 1.8 x 2.5 cm. There is a complicated intraovarian cyst, with peripheral vascularity measuring 1.6 x 1.3 x 1.8 cm. US/US pelvic and transvaginal IMPRESSION: Left intraovarian complicated intraovarian cyst, with peripheral vascularity measuring 1.6 x 1.3 x 1.8 cm. This likely reflects a hemorrhagic corpus luteum. Recommend short interval follow-up in 6-8 weeks to assess for resolution.
== END 2022-09-05 10:34 | disposition home or self-care (01) ==
LOC: HO.US 10:33
PROVIDERS: PCP Internal Medicine; Visit Provider Advanced Practice Midwife
DX: N93.9 Abnormal uterine and vaginal bleeding, unspecified (principal); R87.619 Unspecified abnormal cytological findings in specimens from cervix uteri; Z80.0 Family history of malignant neoplasm of digestive organs
CPT/HCPCS: 76830; 76856

== ENCOUNTER → 2022-09-19 16:10 | Outpatient (BNVA) | payer OTHER, SELFPAY | PROVIDERS: PCP Internal Medicine; Visit Provider Advanced Practice Midwife ==

== ENCOUNTER → 2022-10-16 14:32 | Outpatient (BNVA) | payer OTHER, SELFPAY | PROVIDERS: PCP Internal Medicine; Visit Provider Obstetrics & Gynecology | DX: N93.9 Abnormal uterine and vaginal bleeding, unspecified (principal); N83.299 Other ovarian cyst, unspecified side | CPT/HCPCS: 81025; 99212 ==

== ENCOUNTER 2022-10-30 14:02 | Outpatient (REF) | payer OTHER, SELFPAY | END 2022-10-30 14:03 | disposition home or self-care (01) | LOC: HO.LNP 14:02 | PROVIDERS: PCP Internal Medicine; Visit Provider Obstetrics & Gynecology | DX: N93.9 Abnormal uterine and vaginal bleeding, unspecified (principal) | CPT/HCPCS: 58100; 81025; 88305 ==

== ENCOUNTER 2022-10-30 14:31 | Outpatient (REF) | payer OTHER, SELFPAY ==
[2022-10-30 16:04] LABS: Hematocrit 37.8 % (37.0-47.0); Hemoglobin 12.6 g/dl (12.0-16.0); Mean Corpuscular HGB Conc 33.3 g/dl (31.0-35.0); Mean Corpuscular Hemoglobin 32.4 pg (27.0-33.0); Mean Corpuscular Volume 97.2 fL (80.0-98.0); Platelet Count 294 X10*3/uL (160-400); Red Blood Count 3.89 X10*6/uL (4.20-5.50); White Blood Count 7.8 X10*3/uL (4.8-10.8)
[2022-10-30 16:24] LABS: HCG Quantitative < 2 mIU/mL
[2022-10-30 16:45] LABS: TSH reflex Free T4 < 0.01 uIU/mL (0.32-4.0)
[2022-10-30 17:35] LABS: Free T4 (Free Thyroxine) 1.17 ng/dL (0.71-1.85)
[2022-11-01 15:43] LABS: CA-125 10 U/mL (<35)
== END 2022-10-30 14:32 | disposition home or self-care (01) ==
LOC: HO.LAB 14:31
PROVIDERS: PCP Internal Medicine; Visit Provider Obstetrics & Gynecology
DX: N93.9 Abnormal uterine and vaginal bleeding, unspecified (principal); N83.299 Other ovarian cyst, unspecified side
CPT/HCPCS: 36415; 84146; 84439; 84443; 84702; 85027; 86304

== ENCOUNTER → 2022-11-06 09:18 | Outpatient (REF) | payer OTHER, SELFPAY ==
--- NOTE | ~2022-11-06 | NM_ITS ---
EXAMINATION: THYROID UPTAKE AND SCAN CLINICAL INFORMATION: Thyrotoxicosis, unspecified without thyrotoxic crisis or storm. COMPARISON: None. TECHNIQUE: Following the oral administration of 279 microcuries of I-123 sodium iodide, thyroid uptake was performed and expressed as a percentage of the administrated dose. Gamma scintillation camera images of the thyroid in the anterior and right and left anterior oblique views were obtained using a pinhole collimator following the administration of 10 mCi Tc-99m pertechnetate. FINDINGS: The uptake is 20.4% at 4 hours and 40.6% at 24 hours (Normal radioiodine uptake at 24 hours is 10% to 30%). The radioiodine uptake is abnormally high. The radiopertechnetate thyroid scintigram demonstrates the thyroid gland to be mildly enlarged, shows heterogeneous radiotracer distribution, appear normal in position and likely pyramidal lobe at the superior pole of the left lobe of the thyroid gland. No definite evidence of any discrete hyperfunctioning toxic /hot or cold nodule is present on either side. NM/NM thyroid w uptake IMPRESSION: 1. The radioiodine uptake at 4 as well as 24 hours is abnormally high. 2. The thyroid gland appears mildly enlarged, shows heterogeneous radiotracer distribution and likely pyramidal lobe at the superior pole of the left lobe of the thyroid gland without evidence of any superimposed hyperfunctioning toxic/hot or cold nodule is present on either side. In the appropriate clinical setting, the finding would be consistent with Graves' disease.
[2022-11-08 06:07] LABS: Triiodothyronine T3 Free 5.1 pg/mL (2.3-4.2)
[2022-11-10 16:47] LABS: Thyrotropin Receptor Antibody 5.51 IU/L (<=2.00)
== END ==
LOC: HO.NUCMED 09:18
PROVIDERS: PCP Internal Medicine; Visit Provider Internal Medicine
DX: E05.90 Thyrotoxicosis, unspecified without thyrotoxic crisis or storm (principal); E53.8 Deficiency of other specified B group vitamins
CPT/HCPCS: 36415; 78014; 83520; 84481; A9512; A9516

== ENCOUNTER 2022-11-18 15:23 | Outpatient (REF) | payer OTHER, SELFPAY ==
[2022-11-18 16:38] LABS: TSH reflex Free T4 < 0.01 uIU/mL (0.32-4.0); Vitamin D 25-OH Total 22.1 ng/mL (>30)
[2022-11-18 17:09] LABS: Free T4 (Free Thyroxine) 1.26 ng/dL (0.71-1.85)
== END 2022-11-18 15:24 | disposition home or self-care (01) ==
LOC: HO.LAB 15:23
PROVIDERS: PCP Internal Medicine; Visit Provider Internal Medicine
DX: E55.9 Vitamin D deficiency, unspecified (principal); E05.90 Thyrotoxicosis, unspecified without thyrotoxic crisis or storm
CPT/HCPCS: 36415; 82306; 82607; 82746; 84439; 84443; 84481

== ENCOUNTER 2022-12-04 12:48 | Outpatient (AMB) | payer OTHER, SELFPAY ==
[2022-12-04 12:53] VITALS: BP 96/60; BMI 20.6
--- NOTE | 2022-12-04 12:53 | MHC.OFFVIS ---
Intake Vital Signs 12/04/22 12:53 Height 5 ft 5 in Weight 124 lb BMI 20.6 BP 96/60 Intake Visit Reasons: EMB Follow up Compound Filler Required: No Allergies bee pollen [BEE STINGS] Allergy (Severe, Verified 12/04/22 12:53) ANAPHYLAXIS bees Allergy (Severe, Uncoded 12/04/22 12:53) anaphylaxis Is last menstrual period known: Yes Last menstrual period: 11/30/22 Post menopausal: No HPI HPI Comments History of Present Illness Details The patient is presenting for follow-up to discuss the results of her abnormal uterine bleeding workup and options of treatment. The following workup was done.: H&H= 12.6/37 hCG, prolactin, GC and chlamydia were negative. TSH less than 0.01 with normal free T3 and free T4, the patient saw her PCP regarding that Endometrial biopsy pathology showed secretory endometrium with no evidence of hyperplasia and/or malignancy. Co testing was done was negative. Mammogram was BI-RADS 2 Pelvic ultrasound showed the following: Uterus: The uterus is anteverted and measures 8.0 x 4.1 x 4.8 cm. The double wall endometrial thickness is 6 mm. The uterus is smooth in contour and has normal myometrial echogenicity. No visible fibroid. Adnexa: Both ovaries are visualized. There is normal color flow to the adnexa. There is no ovarian torsion. There is no pelvic ascites or fluid collection. Right ovary measures 3.2 x 1.2 x 2.2 cm. (4 Left ovary measures 3.4 x 1.8 x 2.5 cm. There is a complicated intraovarian cyst, with peripheral vascularity measuring 1.6 x 1.3 x 1.8 cm. The patient was counseled about options of treat the regarding left complex ovarian cyst and decided to proceed with expectant management. Repeat Pelvic ultrasound is scheduled in few weeks. [facility] Medical History Abnormal Pap smear of cervix Atelectasis of left lung History of renal calculi Mucus plugging of bronchi Spontaneous pneumothorax Surgical History History of chest tube placement (~2018) History of chest tube placement (~2021) History of cystoscopy (~2019) History of lithotripsy (~2018) History of lung surgery Family History Father No problems noted. Mother Diabetes Social History Household Members: Family Housing: House Are you a primary career development coordinator to a significant other at home: No Do you presently have visiting nurse or other home services: No Alcohol intake: current Alcohol intake frequency: a few times a week Patient Tobacco Use Status: Current everyday Tobacco user Tobacco use type: Cigarette Cigarette Packs Per Day: 1 Cigarettes Per Day: 20 Years Smoked: 30 Second Hand Smoke Exposure: No Advance Directives Date on File: 11/14/21 service: No Current occupational status: employed Cognitive needs: No Hearing needs: No Vision needs: Yes Female Reproductive History Menstrual Age of Menarche: 9 Date of last menstrual period: 11/30/22 control method: none Date of last pap smear: 08/29/22 Review of Systems Const All systems reviewed & are unremarkable except as noted in HPI and below Reports as per HPI and Reports no additional complaints GI Reports no additional complaints Reports no additional complaints Physical Exam Vital Signs: Last Vital Signs BP 96/60 12/04/22 12:53 BMI result Body Mass Index 20.6 Assessment & Plan Assessment & Plan (1) Complex ovarian cyst: Code(s): N83.299 - Other ovarian cyst, unspecified side Plan: Options of treatment regarding complex ovarian cyst were discussed with the patient between laparoscopic ovarian cystectomy versus expectant management, this patient decided to proceed expected management, Repeat ultrasound scheduled in you few weeks. Instructions given the patient to schedule a follow-up ultrasound appointment. (2) Abnormal uterine bleeding (AUB): Code(s): N93.9 - Abnormal uterine and vaginal bleeding, unspecified Plan: Discussed with the patient the results of the work up done and options of treatment including Lysteda, BCP's, patch and vaginal ring (contraindicated in smokers above the age of 35) Mirena IUD, endometrial ablation and hysterectomy. All pros, cons, risks and benefits if each option was discussed with the patient and the patient decided to think about it and get back to us. All questions answered the patient verbalized understanding. Coding Level of Care Code Est Pt Level 3 (82331) Diagnoses Complex ovarian cyst N83.299 Abnormal uterine bleeding (AUB) N93.9
== END 2022-12-04 13:08 | disposition home or self-care (01) ==
LOC: HO.HWS 12:49
PROVIDERS: PCP Internal Medicine; Visit Provider Obstetrics & Gynecology
DX: N83.299 Other ovarian cyst, unspecified side (principal); N93.9 Abnormal uterine and vaginal bleeding, unspecified
CPT/HCPCS: 99213

== ENCOUNTER → 2022-12-04 12:48 | Outpatient (BNVA) | payer OTHER, SELFPAY | PROVIDERS: PCP Internal Medicine; Visit Provider Obstetrics & Gynecology | DX: N83.299 Other ovarian cyst, unspecified side (principal); N93.9 Abnormal uterine and vaginal bleeding, unspecified | CPT/HCPCS: 99212 ==

== ENCOUNTER 2023-01-15 14:35 | Outpatient (REF) | payer OTHER, SELFPAY ==
--- NOTE | ~2023-01-15 | US_ITS ---
EXAMINATION: US PELVIS COMPLETE CLINICAL INFORMATION: Ovarian cyst COMPARISON: Pelvic ultrasound 09/05/2022 TECHNIQUE: Transabdominal and transvaginal imaging was performed. FINDINGS: The uterus is of normal size and echogenicity measuring 7.5 x 3.9 x 4.8 cm. A regular homogeneous endometrium is identified measuring 0.8 cm. Nabothian cysts in the cervix. Both ovaries are of normal echogenicity. The right measures 3.3 x 2.4 x 2.5 cm for a volume of 10.4 mL. The left measures 2.6 x 2.1 x 1.6 cm for a volume of 4.6 mL. Interval resolution of the previously seen hemorrhagic left ovarian corpus luteum. There is no pelvic free fluid. US/US pelvic and transvaginal IMPRESSION: Interval resolution of the previously seen hemorrhagic left ovarian corpus luteum. Otherwise unremarkable pelvic ultrasound.
[2023-01-15 17:23] LABS: Free T4 (Free Thyroxine) 1.14 ng/dL (0.71-1.85); TSH reflex Free T4 < 0.01 uIU/mL (0.32-4.0)
[2023-01-16 22:54] LABS: Triiodothyronine T3 Free 4.4 pg/mL (2.3-4.2)
== END 2023-01-15 14:36 | disposition home or self-care (01) ==
LOC: HO.US 14:35
PROVIDERS: PCP Internal Medicine; Visit Provider Advanced Practice Midwife
DX: N83.202 Unspecified ovarian cyst, left side (principal); N93.9 Abnormal uterine and vaginal bleeding, unspecified; E05.90 Thyrotoxicosis, unspecified without thyrotoxic crisis or storm
CPT/HCPCS: 36415; 76830; 76856; 84439; 84443; 84481

== ENCOUNTER 2023-01-27 13:45 | Outpatient (AMB) | payer OTHER, SELFPAY ==
[2023-01-27 13:50] VITALS: BP 94/64; BMI 20.6
--- NOTE | 2023-01-27 13:50 | MHC.OFFVIS ---
Intake Vital Signs 01/27/23 13:50 Height 5 ft 5 in Weight 124 lb BMI 20.6 BP 94/64 Intake Visit Reasons: US follow up Paediatric Surgeon Required: No Allergies bee pollen [BEE STINGS] Allergy (Severe, Verified 01/27/23 13:51) ANAPHYLAXIS bees Allergy (Severe, Uncoded 01/27/23 13:51) anaphylaxis Is last menstrual period known: Yes Last menstrual period: 01/13/23 Post menopausal: No HPI HPI Comments History of Present Illness Details Presenting for pelvic ultrasound follow-up regarding previously identified complex ovarian cyst. Pelvic ultrasound done on 01/16/2023 showed the following: IMPRESSION: Interval resolution of the previously seen hemorrhagic left ovarian corpus luteum. Otherwise unremarkable pelvic ultrasound. [facility] Medical History Mucus plugging of bronchi Atelectasis of left lung History of renal calculi Spontaneous pneumothorax Abnormal Pap smear of cervix Surgical History History of lung surgery History of chest tube placement (~2021) History of cystoscopy (~2019) History of lithotripsy (~2018) History of chest tube placement (~2018) Family History Father No problems noted. Mother Diabetes Social History Household Members: Family Housing: House Are you a primary human services care specialist to a significant other at home: No Do you presently have visiting nurse or other home services: No Alcohol intake: current Alcohol intake frequency: a few times a week Patient Tobacco Use Status: Current everyday Tobacco user Tobacco use type: Cigarette Cigarette Packs Per Day: 1 Cigarettes Per Day: 20 Years Smoked: 30 Second Hand Smoke Exposure: No Advance Directives Date on File: 11/14/21 service: No Current occupational status: employed Cognitive needs: No Hearing needs: No Vision needs: Yes Female Reproductive History Menstrual Age of Menarche: 9 Date of last menstrual period: 01/13/23 control method: none Review of Systems Const All systems reviewed & are unremarkable except as noted in HPI and below Reports as per HPI and Reports no additional complaints GI Reports no additional complaints Reports no additional complaints Physical Exam Vital Signs: Last Vital Signs BP 94/64 01/27/23 13:50 BMI result Body Mass Index 20.6 Assessment & Plan Assessment & Plan (1) Complex ovarian cyst: Code(s): N83.299 - Other ovarian cyst, unspecified side Plan: Discussed with the patient ultrasound findings showing the previously identified complex cyst has resolved. The patient was instructed to call if symptoms recur. All questions were answered the patient verbalized understanding. Coding Level of Care Code Est Pt Level 3 (80862) Diagnoses Complex ovarian cyst N83.299
== END 2023-01-27 14:01 | disposition home or self-care (01) ==
PROVIDERS: PCP Internal Medicine; Visit Provider Obstetrics & Gynecology
DX: N83.299 Other ovarian cyst, unspecified side (principal)
CPT/HCPCS: 99213

== ENCOUNTER → 2023-01-27 13:45 | Outpatient (BNVA) | payer OTHER, SELFPAY | PROVIDERS: PCP Internal Medicine; Visit Provider Obstetrics & Gynecology | DX: N83.299 Other ovarian cyst, unspecified side (principal) | CPT/HCPCS: 99212 ==

== ENCOUNTER 2023-06-20 12:31 | Outpatient (AMB) | payer OTHER, SELFPAY ==
[2023-06-20 12:52] VITALS: BP 96/58; PULSE 87; O2SAT 97; BMI 18.6
--- NOTE | 2023-06-20 12:52 | A.OFFPC_ITS ---
Vital Signs 06/20/23 12:52 Height 5 ft 5 in Weight 112 lb BMI 18.6 BP 96/58 L Blood Pressure Location Lt brachial Position Sitting Pulse 87 Pulse Source Pulse Oximeter Pulse Oximetry (%) 97 Oxygen Delivery Method Room Air Intake Visit Reasons: Follow up to discuss referral to Endo Allergies bee pollen [BEE STINGS] Allergy (Severe, Verified 06/20/23 12:52) ANAPHYLAXIS bees Allergy (Severe, Uncoded 06/20/23 12:52) anaphylaxis Medication List - Last Reconciled 06/20/23 by Anabella Fox MD No Known Home Meds Tobacco use date assessed: 06/20/23 Dental Screening Dental Screen Date: 06/20/23 Did you have a dental visit in the last 12 months?: No Did you have a dental problem in the last 6 months where you did not have access to dental care?: No Was dental information given to patient?: Patient declined HPI Follow up to discuss referral to Endo HPI Details Patient presents complaining of increasing anxiety, sweating weight loss. Patient has been trying to schedule an appointment with mri supervisor since last January for Graves disease ,hyperthyroid. She would like to see mri supervisor at [facility]. [facility] Medical History Mucus plugging of bronchi Atelectasis of left lung History of renal calculi Spontaneous pneumothorax Abnormal Pap smear of cervix Surgical History History of lung surgery History of chest tube placement (~2021) History of cystoscopy (~2019) History of lithotripsy (~2018) History of chest tube placement (~2019) Family History Father No problems noted. Mother Diabetes Social History Household Members: Family Housing: House Are you a primary hearing healthcare practitioner to a significant other at home: No Do you presently have visiting nurse or other home services: No Alcohol intake: current Alcohol intake frequency: a few times a week Patient Tobacco Use Status: Current everyday Tobacco user Tobacco use type: Cigarette Cigarette Packs Per Day: 1 Cigarettes Per Day: 20 Years Smoked: 30 Second Hand Smoke Exposure: No Advance Directives Date on File: 11/14/21 service: No Current occupational status: employed Cognitive needs: No Hearing needs: No Vision needs: Yes Female Reproductive History Menstrual Age of Menarche: 9 Questionnaire PHQ-9 Over the last 2 weeks, how often have you been bothered by any of the following problems? 1. Little interest or pleasure in doing things: not at all 2. Feeling down, depressed, or hopeless: not at all 3. Trouble falling or staying asleep, or sleeping too much: not at all 4. Feeling tired or having little energy: not at all 5. Poor appetite or overeating: not at all 6. Feeling bad about yourself - or that you are a failure or have let yourself or your family down: not at all 7. Trouble concentrating on things, such as reading the newspaper or watching television: not at all 8. Moving or speaking so slowly that other people could have noticed. Or the opposite - being so fidgety or restless that you have been moving around a lot more than usual: not at all 9. Thoughts that you would be better off or of hurting yourself in some way: not at all Total score: 0 Depression Screening Interpretation: Negative Depression Screening Done: Yes Source: Developed by Drs. Mario Chopra, Lidia Long, Varinder Gallardo and colleagues, with an educational edgar from [employer]. Thrive Questionnaire Date Thrive assessed: 06/20/23 I am a: Patient What is your living situation today?: I have a steady place to live Within the past 12 months, did the food you bought not last and you didn't have the money to get more?: Never true Within the past 12 months, did you worry whether your food would run out before you got money to buy more?: Never true Do you have trouble paying for medicines?: No Do you have trouble getting transportation to medical appointments?: No Do you have trouble paying your heating and electricity bill?: No Do you have trouble taking care of your child, family member or friend?: No Do you have trouble with day-to-day activities such as bathing, preparing meals, shopping, managing finances, etc.?: No Are you currently unemployed and looking for a job?: No Are you interested in more education?: No Please select the resources that you would like help with: None Currently or been in a relationship where the following occur: no concerns reported THRIVE Score: 0 AUDIT C Alcohol Use Questionnaire (AUDIT-C) 1. How often do you have a drink containing alcohol?: Monthly or less 2. How many drinks containing alcohol do you have on a typical day when you are drinking?: 1 or 2 3. How often do you have six or more drinks on one occasion?: Never Total Score: 1 JAIMIE-7 AMB Questionnaire JAIMIE-7 Date JAIMIE - 7 assessed: 06/20/23 Feeling nervous, anxious, or on edge: 0 = Not at all Not being able to stop or control worryin = Not at all Worrying too much about different things: 0 = Not at all Trouble relaxin = Not at all Being so restless that it is hard to sit still: 0 = Not at all Becoming easily annoyed or irritable: 0 = Not at all Feeling afraid as if something awful might happen: 0 = Not at all Total JAIMIE-7 score (0-4 normal; 5-9 mild; 10-14 moderate; 15-21 severe): 0 Source: Developed by Drs. Mario Chopra, Lidia Long, Varinder Gallardo and colleagues, with an educational edgar from [employer]. Physical exam (Primary Care) Vital Signs: Last Vital Signs Pulse 87 06/20/23 12:52 BP 96/58 L 06/20/23 12:52 Pulse Ox 97 06/20/23 12:52 Oxygen Delivery Method Room Air 06/20/23 12:52 BMI result Body Mass Index 18.6 Tobacco/Smoking Status: Tobacco use Status Tobacco use date assessed 06/20/23 06/20/23 12:56 Patient Tobacco Use Status Current everyday Tobacco 06/20/23 12:56 Tobacco use type Cigarette 06/20/23 12:56 PHQ-9: PHQ-9 Score PHQ-9: Total score 0 06/20/23 12:59 Depression Screening Interpretation: Negative Thrive Assessment: Date of Thrive Assessment Date Thrive assessed 06/20/23 06/20/23 12:59 Currently or been in a relationship where the following occur: no concerns reported Const General: no acute distress HENMT Head: Yes normal to inspection Face and sinus: Yes normal facial exam Eyes Eyelids: Yes lid lag Neck Neck: Yes no lymphadenopathy Thyroid: diffusely enlarged Resp Effort & Inspection: normal respiratory effort Auscultation: clear to auscultation bilaterally Cardio Rhythm: regular rhythm Heart sounds: S1 normal heart sound present and S2 normal heart sound present Assessment and Plan Assessment & Plan (1) Hyperthyroidism: Comment: Nuclear scan consistent with Graves disease Code(s): E05.90 - Thyrotoxicosis, unspecified without thyrotoxic crisis or storm Plan: Repeat TSH level and referred to [facility] Endocrinology as soon as possible. (2) Cigarette smoker: Comment: She is currently in a program for smoking cessation. 08/28/22-discussed is awaiting full prescription of Chantix to try that from her PCC/insurance company Code(s): F17.210 - Nicotine dependence, cigarettes, uncomplicated Plan: Tobacco quitting discussed with the patient Chantix was sent Orders: Referrals Endocrinology Referral E05.90 - Thyrotoxicosis, unspecified without thyrotoxic crisis or storm Medications: New varenicline (Chantix Starting Month Box) PO PER PKG DIR 53 ea 0RF varenicline (Chantix Continuing Month Box) 1 mg PO BID 60 tabs 2RF Coding Level of Care Code Est Pt Level 3 (83145) Diagnoses Hyperthyroidism E05.90 Cigarette smoker F17.210
== END 2023-06-20 15:53 | disposition home or self-care (01) ==
PROVIDERS: PCP Internal Medicine; Visit Provider Internal Medicine
DX: E05.90 Thyrotoxicosis, unspecified without thyrotoxic crisis or storm (principal); F17.210 Nicotine dependence, cigarettes, uncomplicated
CPT/HCPCS: 99213

== ENCOUNTER 2023-06-25 07:10 | Outpatient (REF) | payer OTHER, SELFPAY ==
[2023-06-25 11:38] LABS: MANUAL DIFF FLAG NO
[2023-06-25 11:50] LABS: Basophils Absolute Auto 0.1 X10*3/uL (0.0-0.2); Basophils Percent Auto 0.6 % (0-2); Eosinophils Absolute Auto 0.4 X10*3/uL (0.0-0.4); Eosinophils Percent Auto 3.9 % (0-4); Hematocrit 42.6 % (37.0-47.0); Hemoglobin 14.1 g/dl (12.0-16.0); Imm Gran Abs Auto 0.02 X10*3/uL (0.00-0.03); Imm Gran Pct Auto 0.2 % (0.0-0.4); Lymphocytes Absolute Auto 3.1 X10*3/uL (1.2-4.9); Lymphocytes Percent Auto 29.3 % (20-40); Mean Corpuscular HGB Conc 33.1 g/dl (31.0-35.0); Mean Corpuscular Hemoglobin 31.8 pg (27.0-33.0); Mean Corpuscular Volume 96.2 fL (80.0-98.0); Mean Platelet Volume 12.3 fL (9.4-12.3); Monocytes Absolute Auto 0.8 X10*3/uL (0.1-1.2); Monocytes Percent Auto 7.9 % (2-11); Neutrophils Absolute Auto 6.2 x10*3/uL (2.0-8.3); Neutrophils Percent Auto 58.1 % (45-73); Platelet Count 397 X10*3/uL (160-400); Red Blood Count 4.43 X10*6/uL (4.20-5.50); Red Cell Distribution Width 13.1 % (11.0-16.0); White Blood Count 10.7 X10*3/uL (4.8-10.8)
[2023-06-25 12:11] LABS: Alanine Aminotransferase 11 U/L (0-31); Albumin Level 3.7 g/dL (3.5-5.0); Alkaline Phosphatase 49 U/L (39-117); Anion Gap 10 (12-20); Aspartate Amino Transferase 17 U/L (5-31); Bilirubin Total 0.9 mg/dL (0.0-1.0); Blood Urea Nitrogen 12 mg/dL (9-16); Calcium 9.1 mg/dL (8.4-10.2); Carbon Dioxide 26 mmol/L (22-29); Chloride 110 mmol/L (96-108); Cholesterol 150 mg/dL (<200); Estimated Glomerular Filt Rate > 60; Glucose Fasting 86 mg/dL (60-99); HDL Cholesterol 49 mg/dL (>40); LDL Cholesterol Calculated 88 mg/dL (<100); Potassium 4.5 mmol/L (3.3-5.1); Sodium 141 mmol/L (135-145); Total Protein 6.6 g/dL (6.5-8.0); Triglycerides 66 mg/dL (<150)
[2023-06-25 12:33] LABS: TSH reflex Free T4 < 0.01 uIU/mL (0.32-4.0)
[2023-06-25 13:14] LABS: Free T4 (Free Thyroxine) 1.26 ng/dL (0.71-1.85)
[2023-06-26 08:29] LABS: Triiodothyronine T3 Free 4.6 pg/mL (2.3-4.2)
== END 2023-06-25 07:11 | disposition home or self-care (01) ==
LOC: HO.HMGCLDS 07:10
PROVIDERS: PCP Internal Medicine; Visit Provider Internal Medicine
DX: Z00.00 Encounter for general adult medical examination without abnormal findings (principal); E05.90 Thyrotoxicosis, unspecified without thyrotoxic crisis or storm
CPT/HCPCS: 36415; 80053; 80061; 84439; 84443; 84481; 85025

== ENCOUNTER 2023-06-26 08:31 | Emergency (ER) | payer OTHER, SELFPAY ==
[2023-06-26 08:44] VITALS: BP 122/80; PULSE 100; RESP 19; TEMP 36.6; O2SAT 99; BMI 19.6
--- NOTE | 2023-06-26 09:10 | ED_ITS ---
HPI - Allergic Reaction General Chief complaint: Allergic Reaction Stated complaint: SOB, allergic reaction to meds Time Seen by Provider: 06/26/23 09:03 Source: patient, RN notes reviewed and old records reviewed Mode of arrival: ambulatory History of Present Illness HPI narrative: 43-year-old female with past medical history of COPD, anxiety, depression, alopecia recently started on new medication, Anthralin cream, by dermatology presenting to ED with suspected allergic reaction to new medication. States applied cream to scalp over the past 2 days and woke up yesterday morning with diffuse scalp/neck/chest and upper back erythema/burning and pruritus. Reports mild SOB this morning, size stamper instructed patient to go to ED for further eval. Admits to taking Benadryl yesterday, no medications taken today Denies other new medications, or new exposures including soap, lotion, detergents, travel, known tick or insect bites Related Data Previous Rx's Medication Instructions Recorded varenicline 0.5 mg (11)-1 mg (42) See Rx Instructions PO PER PKG DIR 06/20/23 tablets in a dose pack (Chantix #53 ea Starting Month Box) varenicline 1 mg tablet (Chantix 1 mg PO BID #60 tabs 06/20/23 Continuing Month Box) amoxicillin 875 mg tablet 875 mg PO BID #20 tabs 06/25/23 cetirizine 10 mg capsule (Zyrtec) 10 mg PO DAILY PRN allergy 06/26/23 symptoms #14 caps diphenhydramine HCl 25 mg capsule 25 mg PO TID PRN allergy symptoms 06/26/23 (Benadryl) #14 caps prednisone 20 mg tablet 40 mg (2 x 20 mg) PO DAILY 4 days 06/26/23 #8 tabs Allergies Allergy/AdvReac Type Severity Reaction Status Date / Time bee pollen [BEE STINGS] Allergy Severe ANAPHYLAXIS Verified 06/26/23 08:43 bees Allergy Severe anaphylaxis Uncoded 06/26/23 08:43 Review of Systems Review of Systems: Constitutional: No Fever, No Chills ENT/Mouth: No Ear Pain, No Nasal Congestion, No Sinus Pain, No Hoarseness, No sore throat, No Rhinorrhea, No Swallowing Difficulty Cardiovascular: No Chest Pain, No SOB Respiratory: No Cough, No Sputum, No Wheezing Gastrointestinal: No Nausea, No Vomiting, No Abdominal pain Genitourinary: No Dysuria, No Urinary Frequency, No Hematuria Musculoskeletal: No joint pain, No Myalgias, No Joint Swelling Skin: No Skin Lesions,+rash Neuro: No Weakness, No Numbness, No Paresthesias Yes all other systems are reviewed and are negative Constitutional: Constitutional: Reports as per [facility] Past Medical History Attestation statement: The following information was validated with the patient. Source: old records reviewed Medical History Mucus plugging of bronchi Atelectasis of left lung History of renal calculi Spontaneous pneumothorax Abnormal Pap smear of cervix Surgical History History of lung surgery History of chest tube placement (~2021) History of cystoscopy (~2019) History of lithotripsy (~2018) History of chest tube placement (~2018) Family History Family History Father No problems noted. Mother Diabetes Social History Social History Household Members: Family Housing: House Are you a primary critical care registered nurse to a significant other at home: No Do you presently have visiting nurse or other home services: No Alcohol intake: current Alcohol intake frequency: a few times a week Patient Tobacco Use Status: Current everyday Tobacco user Tobacco use type: Cigarette Cigarette Packs Per Day: 1 Cigarettes Per Day: 20 Years Smoked: 30 Second Hand Smoke Exposure: No Advance Directives: Yes Advance Directives on File: Yes Advance Directives Date on File: 11/14/21 service: No Current occupational status: employed Cognitive needs: No Hearing needs: No Vision needs: Yes Physical Exam ED Vital Signs: Vital Signs - 24 hr 06/26/23 08:44 Temperature 98 F Pulse Rate 100 Respiratory Rate 19 Blood Pressure 122/80 Pulse Oximetry 99 Oxygen Delivery Method Room Air BMI result Body Mass Index 19.6 Const General: cooperative, healthy appearing and no acute distress Orientation/consciousness: patient oriented x3 Limitations: no limitations HENMT Head: Yes normal to inspection and Yes atraumatic Ears: hearing grossly normal bilaterally General nose exam: Normal external nose present Face and sinus: Yes normal facial exam Mouth: Normal oral and palatal mucosa present and no drooling Throat: Yes posterior oropharynx normal, Yes tonsils normal, Yes uvula midline, No peritonsillar mass, No uvula laterally displaced and No uvular edema Eyes General: appearance normal, both eyes and all related structures EOM: EOMs intact bilaterally Neck Neck: Yes normal visual inspection and Yes no meningeal signs Resp Effort & Inspection: normal respiratory effort, not labored, no respiratory d istress and no stridor Auscultation: clear to auscultation bilaterally and no wheezes Cardio Rate: regular rate Heart sounds: S1 normal heart sound present and S2 normal heart sound present GI Inspection: Yes normal to inspection Palpation (GI): Soft to palpation, nontender, no guarding and not rigid Skin Other: + diffuse erythema noted to scalp, face, neck, upper chest and back. No sloughing, streaking, open wounds/ulcers or pustules. No palm/sole or mucous membrane involvement. Wounds: no wounds Neuro General: patient oriented x3, tone normal and no meningeal signs Cranial nerves: Yes CN's II-XII intact bilaterally Gait exam (Neuro): Normal gait present Extrem General: Yes normal to inspection Course Course Course Narrative: -1010--on re-evaluation rash mildly improved after medications. Results discussed with patient including worrisome signs and symptoms and strict return precautions, and when to return to the emergency department. They verbalized understanding and feel safe for discharge at this time. Medications Administered Discontinued Medications Generic Name Dose Route Start Last Admin Trade Name Freq PRN Reason Stop Dose Admin Diphenhydramine HCl 50 mg 06/26/23 09:25 06/26/23 09:33 Diphenhydramine Hcl 50 Mg/Ml Vial IM 06/26/23 09:26 50 mg ONCE ONE Administration Methylprednisolone Sodium Succinate 60 mg 06/26/23 09:25 06/26/23 09:32 Methylprednisolone Sod Succ 125 Mg/2 Ml Vial IM 06/26/23 09:26 60 mg ONCE ONE Administration Medical Decision Making Medical Decision Making [facility] Narrative: 43-year-old female with past medical history of COPD, anxiety, depression, alopecia recently started on new medication, Anthralin cream, by dermatology presenting to ED with suspected allergic reaction to new medication. On exam vital signs stable, NAD, nontoxic appearing, physical exam as noted above with rash/erythema to scalp/neck/face and upper back/chest. No evidence of anaphylaxis, no respiratory compromise, talking complete sentences, no stridor, lungs CTA. Concern for allergic reaction. Low suspicion for SJS, TNS, cellulitis Plan: IM Solu-Medrol, IM Benadryl, re-evaluate, dermatology follow-up Please refer to course for remaining clinical decision making, interpretation of labs/imaging results, and discussions with consultants and/or family members. Differential Diagnosis Differential Diagnoses: The differential diagnosis associated with the presentation includes As above External Record Review External record reviewed: Inpatient record, Office record, Outpatient record, Prior outpatient labs, Prior outpatient radiology, Primary care record and Outside ED record Tests considered The following testing was considered but not selected: As above Prescription Management I considered prescription management with: Other Chronic Conditions Patient?s care impacted by: Other Discharge Plan Discharge Clinical Impression: Allergic reaction Patient Disposition: Home, Self-Care Instructions: General Allergic Reaction (ED) Additional Instructions: Please stop taking previously prescribed medication as this is likely the cause of her symptoms Take Benadryl as needed for allergy symptoms, this will make you drowsy You may also take Zyrtec or Claritin which will not make you drowsy Prednisone as a steroid which will help with inflammation If symptoms persist or worsen you develop any difficulty breathing, throat closing sensation or worsening rash return to the emergency department PLEASE CALL YOUR APPRENTICESHIP TRAINING REPRESENTATIVE FOR CLOSE FOLLOW-UP Prescriptions: New diphenhydramine HCl [Benadryl] 25 mg capsule 25 mg PO TID PRN (Reason: allergy symptoms) Qty: 14 0RF Zyrtec 10 mg capsule 10 mg PO DAILY PRN (Reason: allergy symptoms) Qty: 14 0RF prednisone 20 mg tablet 40 mg PO DAILY 4 Days Qty: 8 0RF No Action amoxicillin 875 mg tablet 875 mg PO BID Qty: 20 0RF varenicline [Chantix Starting Month Box] 0.5 mg (11)- 1 mg (42) tablets,dose pack See Rx Instructions PO PER PKG DIR Qty: 53 0RF Rx Instructions: PO PER PKG DIR varenicline [Chantix Continuing Month Box] 1 mg tablet 1 mg PO BID Qty: 60 2RF Referrals: Ephraim Munguia MD [Physician] - Anabella Fox MD [Primary Care Provider] -
[2023-06-26] MEDS: methylPREDNISolone Sod Succ 125 MG/2 ML VIAL 60 MG IM (09:32)
[2023-06-26] MEDS: diphenhydrAMINE HCL 50 MG/ML VIAL IM (09:33)
== END 2023-06-26 10:16 | disposition home or self-care (01) ==
PROVIDERS: Emergency Provider Emergency Medicine; PCP Internal Medicine
DX: R21 Rash and other nonspecific skin eruption (principal); T49.4X5A Adverse effect of keratolytics, keratoplastics, and other hair treatment drugs and preparations, initial encounter; Y92.019 Unspecified place in single-family (private) house as the place of occurrence of the external cause
CPT/HCPCS: 96372; 99282; 99283; 99284; J1200; J2930

== ENCOUNTER 2023-08-12 14:59 | Outpatient (AMB) | payer OTHER, SELFPAY ==
--- NOTE | 2023-08-12 15:06 | MHC.OFFVIS ---
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 Intake Note: New patient is present for History of Kidney stones Patient was a previous patient Allergies bee pollen [BEE STINGS] Allergy (Severe, Verified 08/12/23 15:10) ANAPHYLAXIS bees Allergy (Severe, Uncoded 08/12/23 15:10) anaphylaxis Medication List - Last Reconciled 08/12/23 by Tj Mesa MD amoxicillin 875 mg PO BID cetirizine (Zyrtec) 10 mg PO DAILY PRN diphenhydramine HCl (Benadryl) 25 mg PO TID PRN prednisone 40 mg (2 x 20 mg) PO DAILY 4 days varenicline (Chantix Starting Month Box) PO PER PKG DIR varenicline (Chantix Continuing Month Box) 1 mg PO BID HPI HPI Comments History of Present Illness Details Natasha is a pleasant female. She is a patient of Dr. Fox. She is seen for the following urologic conditions - nephrolithiasis Has not been seen for a number of years Question about recurrence of nephrolithiasis Recommend imaging CT based on prior presentation Nephrolithiasis Prior presentation with right staghorn calculus Underwent PCNL No recent imaging [facility] Medical History Mucus plugging of bronchi Atelectasis of left lung History of renal calculi Spontaneous pneumothorax Abnormal Pap smear of cervix Surgical History History of lung surgery History of chest tube placement (~2021) History of cystoscopy (~2019) History of lithotripsy (~2018) History of chest tube placement (~2018) Family History Father No problems noted. Mother Diabetes Social History Household Members: Family Housing: House Are you a primary team primary care physician to a significant other at home: No Do you presently have visiting nurse or other home services: No Alcohol intake: current Alcohol intake frequency: a few times a week Patient Tobacco Use Status: Current everyday Tobacco user Tobacco use type: Cigarette Cigarette Packs Per Day: 1 Cigarettes Per Day: 20 Years Smoked: 30 Second Hand Smoke Exposure: No Advance Directives Date on File: 11/14/21 service: No Current occupational status: employed Cognitive needs: No Hearing needs: No Vision needs: Yes Female Reproductive History Menstrual Age of Menarche: 9 Review of Systems Const Denies chills and Denies fever(s) Card Reports no additional complaints and Denies syncope Resp Denies cough GI Denies abdominal pain and Denies heartburn Reports as per HPI and Denies change in libido Neuro Denies syncope Psych Denies change in libido Endo Denies change in libido Physical Exam Const General: cooperative, healthy appearing, comfortable and no acute distress Orientation/consciousness: patient oriented x3 HEENT Face and sinus: Yes normal facial exam Mouth: moist mucous membranes Neck Neck: Yes normal visual inspection, Yes full ROM and Yes trachea midline Chest Chest palpation & inspection: normal inspection of the chest Resp Effort & Inspection: normal respiratory effort, able to speak in complete sentences and no respiratory distress GI Inspection: Yes normal to inspection Back/Spine/Pelvis Cervical Spine: normal cervical lordosis Thoracic/Lumbar Spine: thoracic and lumbar spine normal to inspection Skin General skin exam: no rashes or lesions noted Neuro General: patient oriented x3, gait normal, tone normal and moves all extremities Extrem General: Yes normal to inspection and Yes capillary refill normal Assessment & Plan Assessment & Plan (1) Nephrolithiasis: Code(s): N20.0 - Calculus of kidney Plan Low-dose stone CT Orders: Orders CT abdomen wo IV con 08/12/23 N20.0 - Calculus of kidney Patient Instructions: Imaging studies, laboratory and physical exam results were discussed and reviewed in detail. No major barriers to patient understanding were identified. An opportunity to ask questions regarding the treatment plan was provided. All questions were answered. The patient expressed understanding and agreement with the above treatment plan. The patient is aware they should contact our office by phone for worsening of their current condition or the appearance of new urologic symptoms. Compliance is encouraged with any medications and followup testing that is ordered. It is a privilege to participate in the urologic care of your patient. If you have any questions or concerns regarding treatment for the above conditions, or other urologic issues, please do not hesitate to contact me. The office telephone contact is [phone]. This note is constructed using voice recognition software. While every effort has been made to ensure accuracy general education instructor errors may have been included. Yours sincerely, Dr Tj Mesa MD, [facility] - Urology Providers of Expert, Compassionate Care for the Genitourinary System Coding Level of Care Code New Pt Level 4 (31020) Diagnoses Nephrolithiasis N20.0
== END 2023-08-12 15:37 | disposition home or self-care (01) ==
PROVIDERS: PCP Internal Medicine; Visit Provider Urology
DX: N20.0 Calculus of kidney (principal)
CPT/HCPCS: 99203

== ENCOUNTER → 2023-08-12 14:59 | Outpatient (BNVA) | payer OTHER, SELFPAY | PROVIDERS: PCP Internal Medicine; Visit Provider Urology | DX: N20.0 Calculus of kidney (principal) | CPT/HCPCS: 99202 ==

== ENCOUNTER 2023-09-08 14:34 | Outpatient (AMB) | payer OTHER, SELFPAY ==
[2023-09-08 14:48] VITALS: BP 90/54; BMI 19.6
--- NOTE | 2023-09-08 14:48 | A.OFFVIS_ITS ---
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 No complaints. Last Pap/HPV was negative in 09/01 Last Mammogram was BI-RADS 2 in 06/03 [facility] Medical History Mucus plugging of bronchi Atelectasis of left lung History of renal calculi Spontaneous pneumothorax Abnormal Pap smear of cervix Surgical History History of loop electrical excision procedure (LEEP) History of lung surgery History of chest tube placement (~2021) History of cystoscopy (~2019) History of lithotripsy (~2018) History of chest tube placement (~2018) Family History Father No problems noted. Mother Diabetes Social History Household Members: Family Housing: House Are you a primary palliative care physician to a significant other at home: No Do you presently have visiting nurse or other home services: No Alcohol intake: current Alcohol intake frequency: a few times a week Patient Tobacco Use Status: Current everyday Tobacco user Tobacco use type: Cigarette Cigarette Packs Per Day: 1 Cigarettes Per Day: 20 Years Smoked: 30 Second Hand Smoke Exposure: No Advance Directives Date on File: 11/14/21 service: No Current occupational status: employed Cognitive needs: No Hearing needs: No Vision needs: Yes Female Reproductive History Menstrual Age of Menarche: 9 Date of last menstrual period: 08/29/23 control method: none Total pregnancies: 2 Full term: 2 Number of Living Children: 2 Date of last pap smear: 08/28/22 (neg pap and hpv) History of abnormal pap smear: Yes (hx leep) Date of Mammogram: 05/22/22 Review of Systems Const All systems reviewed & are unremarkable except as noted in HPI and below Card Reports as per HPI Resp Reports as per HPI GI Reports as per HPI and Reports no additional complaints Reports as per HPI Physical Exam Vital Signs: Last Vital Signs BP 90/54 L 09/08/23 14:48 BMI result Body Mass Index 19.6 Const General: cooperative, healthy appearing and comfortable Chest Chest palpation & inspection: normal inspection of the chest and normal palpation of entire chest wall Breast/axilla inspection: normal inspection of the breasts and normal inspection of the axillae Breast/axilla palpation: normal palpation of the breasts, normal palpation of the axillae and no axillary lymphadenopathy Resp Effort & Inspection: normal respiratory effort Auscultation: clear to auscultation bilaterally Percussion: percussion normal Cardio Palpation: normal PMI Rate: regular rate Rhythm: regular rhythm Heart sounds: no murmurs and no rubs Peripheral pulses: Peripheral pulses 2+ throughout GI Inspection: Yes normal to inspection Palpation (GI): Soft to palpation, nontender, no guarding, not rigid and No hepatosplenomegaly present Percussion: Yes normal to percussion Auscultation: normal bowel sounds Rectal Exam - Female: deferred General: Yes bladder normal to palpation External Female Exam: No lesion Speculum Exam - Vagina: normal appearance of the vagina, normal palpation, normal vaginal discharge and not erythematous Speculum Exam - Cervix: normal appearance of the cervix and normal palpation Bimanual exam- vagina & uterus: normal bimanual exam, normal palpation, uterine size normal, bladder normal to palpation, consistency normal and normal palpation Bimanual Exam- Adnexa, other: normal adnexae, no masses and no tenderness Assessment & Plan Assessment & Plan (1) Well woman exam: Code(s): Z01.419 - Encounter for gynecological examination (general) (routine) without abnormal findings Category: Medical Plan: Cotesting not indicated this year. Mammogram ordered. Counseled the patient about the recommended dietary allowance of 1000 mg of Calcium & 600 IU of vitamin D. The patient was instructed to perform monthly self-breast exams and to schedule an annual exam in a year; All questions answered and the patient verbalized understanding. Instructed the patient to schedule annual exam in a year Orders: Orders MM tomosynthesis screening BI Today Z12.31 - Encounter for screening mammogram for malignant neoplasm of breast Coding Level of Care Code Est Pt Prev Care 40-64y(99916) Diagnoses Well woman exam Z01.419
== END 2023-09-08 15:06 | disposition home or self-care (01) ==
PROVIDERS: PCP Internal Medicine; Visit Provider Obstetrics & Gynecology
DX: Z01.419 Encounter for gynecological examination (general) (routine) without abnormal findings (principal)
CPT/HCPCS: 99396

== ENCOUNTER → 2023-09-08 14:34 | Outpatient (BNVA) | payer OTHER, SELFPAY | PROVIDERS: PCP Internal Medicine; Visit Provider Obstetrics & Gynecology | DX: Z01.419 Encounter for gynecological examination (general) (routine) without abnormal findings (principal) | CPT/HCPCS: 99396 ==

== ENCOUNTER 2023-10-03 09:22 | Outpatient (REF) | payer OTHER, SELFPAY ==
--- NOTE | ~2023-10-03 | MM_ITS ---
EXAMINATION: MM SCREENING DIGITAL BREAST TOMOSYNTHESIS, BILATERAL CLINICAL INFORMATION: Screening. Asymptomatic. COMPARISON: Mammography: This study is compared with prior exams dating back to 2020. TECHNIQUE: Digital breast tomosynthesis is performed in both the craniocaudal and mediolateral oblique views along with computer-aided detection (CAD). Synthesized 2D images are generated from the tomosynthesis. FINDINGS: The breasts are heterogeneously dense, which may obscure small masses (ACR BI-RADS breast composition Category c). There are no significant masses, abnormal calcifications, or other abnormalities. MM/MM tomosynthesis screening BI IMPRESSION: No mammographic evidence of malignancy. ASSESSMENT: BI-RADS BI-RADS 1 - Negative RECOMMENDATION: Routine annual mammography screening. 1 year F/U This examination should not preclude the clinical evaluation of a suspicious palpable abnormality. This patient's information was entered into a reminder system with a target due date for their next mammogram.
== END 2023-10-03 09:23 | disposition home or self-care (01) ==
LOC: HO.MAMMO 09:22
PROVIDERS: PCP Internal Medicine; Visit Provider Obstetrics & Gynecology
DX: Z12.31 Encounter for screening mammogram for malignant neoplasm of breast (principal)
CPT/HCPCS: 77063; 77067

== ENCOUNTER → 2023-10-03 09:30 | Outpatient (BNV) | payer OTHER, SELFPAY | PROVIDERS: PCP Internal Medicine; Visit Provider Radiology Diagnostic Radiology | DX: Z12.31 Encounter for screening mammogram for malignant neoplasm of breast (principal) | CPT/HCPCS: 77063; 77067 ==